=== PATIENT | female | born 1990 | race Caucasian/White ===

== ENCOUNTER 2019-10-23 07:34 | Inpatient (IN) | payer OTHER ==
[2019-10-23] MEDS ORDERED: Nalbuphine 10 MG/ML Syringe IVPUSH PRN (08:01)
[2019-10-23] MEDS ORDERED: Sodium Chloride 0.9% 10 ML Syringe FLUSH PRN (08:01)
[2019-10-23] MEDS ORDERED: Ondansetron 4 MG/2 ML SDV IVPUSH PRN (08:01)
[2019-10-23] MEDS ORDERED: Ampicillin 2 GM in Sodium Chloride 0.9% 100 ML IV ONE (08:01)
[2019-10-23] MEDS ORDERED: Oxytocin/Lactated Ringers 10 UNIT/1,000 ML BAG IV SCH ×2 (08:15→15:45)
[2019-10-23] MEDS ORDERED: diphenhydrAMINE 50 MG/ML SDV IVPUSH PRN (08:23)
[2019-10-23] MEDS ORDERED: ePHEDrine 50 MG/ML SDV IVPUSH PRN (08:23)
[2019-10-23] MEDS: Lactated Ringers 1,000 ML IV SCH ×5 (08:24→21:17)
--- NOTE | 2019-10-23 08:27 | PCM.PREANE ---
Preanesthetic Assessment - Procedure Proposed Procedure: sue - Anesthesia/Transfusion/Family Hx Anesthesia History: Prior Anesthesia Without Reaction Family History of Anesthesia Reaction: No Transfusion History: No Prior Transfusion(s) - Review of Systems General: No Symptoms Pulmonary: No Symptoms Cardiovascular: No Symptoms Gastrointestinal: No Symptoms Neurological: No Symptoms Other: Reports: None - Physical Assessment Vital Signs: Last Vital Signs Temp 99.5 F 10/23/19 07:43 Pulse 114 H 10/23/19 07:43 Resp 16 10/23/19 07:43 BP 145/82 H 10/23/19 07:43 Pulse Ox 98 10/23/19 07:43 Height: 5 ft 5 in Weight: 94.529 kg ASA Class: 2 Mental Status: Alert & Oriented x3 Airway Class: Mallampati = 1 Dentition: Reports: Normal Dentition Thyro-Mental Finger Breadths: 3 Mouth Opening Finger Breadths: 3 ROM/Head Extension: Full Lungs: Clear to Auscultation, Normal Respiratory Effort Cardiovascular: Regular Rate, Regular Rhythm, No Murmurs - Allergies Allergies/Adverse Reactions: Allergies Allergy/AdvReac Type Severity Reaction Status Date / Time No Known Allergies Allergy Verified 10/23/19 07:43 - Blood Blood Available: No - Acknowledgements Anesthesia Type Planned: Epidural Pt an Appropriate Candidate for the Planned Anesthesia: Yes Alternatives and Risks of Anesthesia Discussed w Pt/Guardian: Yes Pt/Guardian Understands and Agrees with Anesthesia Plan: Yes PreAnesthesia Questionnaire Cardiovascular History: Reports: None Respiratory History: Reports: Asthma (exercise-induced) Gastrointestinal History: Reports: None : 1 (40 weeks) Para: 0 - Past Surgical History HEENT Surgical History: Reports: Tonsillectomy GI Surgical History: Reports: Colonoscopy Female Surgical History: Reports: Breast Implant Musculoskeletal Surgical History: Reports: Shoulder Surgery - SUBSTANCE USE Smoking Status *Q: Never Smoker Tobacco Use Within Last Twelve Months: No Second Hand Smoke Exposure: No Days Per Week of Alcohol Use: 0 Recreational Drug Use History: No - HOME MEDS Home Medications: Home Meds Albuterol Sulfate [Albuterol Sulfate HFA] 8.5 gm IH Q6H PRN 10/14/13 [History] Vits #93/Iron Fum/FA [ Formula Tablet] 1 each PO 10/23/19 [ History] - CURRENT (IN HOUSE) MEDS Current Meds: Current Medications Ampicillin Sodium 2 gm/ Sodium (Chloride) 100 mls @ 200 mls/hr IV ONETIME ONE Stop: 10/23/19 08:30 Lactated Ringer's (Ringers, Lactated) 1,000 mls @ 100 mls/hr IV ASDIRECTED JOSE Ampicillin Sodium 1 gm/ Sodium (Chloride) 100 mls @ 200 mls/hr IV Q4H JOSE Oxytocin/Lactated Ringer's (Pitocin In Lr 10 Units/1,000 Ml) 10 unit in 1,000 mls @ 500 mls/hr IV .CONTINUOUS JOSE Nalbuphine HCl (Nubain) 10 mg IVPUSH Q2H PRN PRN Reason: Pain Ondansetron HCl (Zofran) 4 mg IVPUSH Q4H PRN PRN Reason: Nausea/Vomiting Sodium Chloride (Saline Flush) 10 ml FLUSH ASDIRECTED PRN PRN Reason: Keep Vein Open
[2019-10-23] MEDS: fentaNYL 100 MCG/2 ML SDV EPIDUR PRN ×3 (08:47→15:46)
[2019-10-23] MEDS: Bupivacaine/fentaNYL/NS 100 ML Bag EPIDUR PRN ×3 (08:48→20:13)
--- NOTE | 2019-10-23 11:26 | PCM.LDHP ---
L&D History of Present Illness - General Date of Service: 10/23/19 Admit Problem/Dx: Patient Status Order with Admit Dx/Problem 10/23/19 07:43 Patient Status [ADT] Routine 10/23/19 08:01 Patient Status [ADT] Routine Admission Diagnosis/Problem Admission Diagnosis/Problem Source of Information: Patient History Limitations: Reports: No Limitations - History of Present Illness Introduction:: Svetlana Craft is a 29-year-old at 40 weeks 2 days (KEZIA 10/21/2019) by LMP who presents for evaluation of possible labor. She reports that she started to have contractions that were somewhat regular about every 10 minutes apart starting around 7 PM on 10/22/2019. Throughout the evening they started to get closer and closer together until around 4 this morning when they were about 5 minutes apart. She denies any leaking of fluid or vaginal bleeding. Reports good movement. She reports that the contractions have been getting stronger and more painful throughout the evening. Timing/Duration: Reports: gradual onset, getting worse Location, : Reports: Lower back, Pelvic Quality: Reports: Pressure Severity: Severe Pain Score: 7 Improves with: Reports: None Worsens with: Reports: None Associated Symptoms: Denies: vaginal bleeding, vaginal discharge, vaginal fluid Present Illness Comments:: Svetlana Craft is a 29-year-old at 40 weeks 2 days (KEZIA 10/21/2019) who presents in active labor. She has had routine care with Dr. Mark starting at 10 weeks gestational age. She reports that the has been overall uncomplicated. She received flu vaccine on 03/28/2019 and Tdap on 2019. This is complicated by: * GBS positive on swab -patient to receive GBS prophylactic antibiotics on labor and delivery * History of exercise-induced asthma -patient reports history of exercise- induced asthma and has not needed to use her inhalers throughout the . * History of breast augmentation -we will have patient work with community health consultant as well as nursing staff to assist with breast-feeding after delivery * Obesity in labs Blood type: A+ Antibody screen: Negative First trimester hematocrit/hemoglobin: 41.9%/14.7 on 03/28/2019 Platelets: 279 on 03/28/2019 Urine culture: Negative, consistent with contamination Rubella status: Immune Hepatitis B surface antigen: Negative RPR: Negative HIV: Negative Gonorrhea: Negative Chlamydia: Negative Genetic testing: Negative genetic screening testing performed at approximately 10 weeks gestational age One hour glucose tolerance test: 114 Second trimester hemoglobin: 12.7 on 08/01/2019 Platelets: 237 on 08/01/2019 GBS status: Positive on swab done on 09/26/2019 - Related Data Allergies/Adverse Reactions: Allergies Allergy/AdvReac Type Severity Reaction Status Date / Time No Known Allergies Allergy Verified 10/23/19 07:43 Home Medications: Home Meds Albuterol Sulfate [Albuterol Sulfate HFA] 8.5 gm IH Q6H PRN 10/14/13 [History] Vits #93/Iron Fum/FA [ Formula Tablet] 1 each PO 10/23/19 [ History] Past Medical History Cardiovascular History: Reports: None Respiratory History: Reports: Asthma (exercise-induced) Gastrointestinal History: Reports: None IN[employer]CHIT[employer] History: Reports: : 1 Para: 0 - Infectious Disease History Infectious Disease History: Reports: Chicken Pox - Past Surgical History HEENT Surgical History: Reports: Tonsillectomy GI Surgical History: Reports: Colonoscopy Female Surgical History: Reports: Breast Implant Musculoskeletal Surgical History: Reports: Shoulder Surgery (x2) Social & Family History - Tobacco Use Smoking Status *Q: Never Smoker Second Hand Smoke Exposure: No - Alcohol Use Days Per Week of Alcohol Use: 0 - Recreational Drug Use Recreational Drug Use: No - Living Situation & Occupation Living situation: Reports: Single, with Significant Other, Other Occupation: Unemployed H&P Review of Systems - Review of Systems: Review Of Systems: See Below General: Denies: Fever, Chills, Malaise, Weakness, Fatigue HEENT: Denies: Headaches, Rhinitis, Post Nasal Drip, Sinus Congestion, Sore Throat, Visual Changes Pulmonary: Denies: Shortness of Breath, Wheezing, Pleuritic Chest Pain, Cough Cardiovascular: Denies: Chest Pain, Palpitations, Dyspnea on Exertion, Orthopnea Gastrointestinal: Denies: Abdominal Pain, Constipation, Diarrhea, Nausea, Vomiting Genitourinary: Denies: Dysuria, Frequency, Burning, Pain, Urgency Musculoskeletal: Reports: Back Pain (And hip pain of ) Skin: Denies: Rash, Lesions Psychiatric: Denies: Depression, Anxiety L&D Exam - Exam Exam: See Below - Vital Signs Vital Signs: Last Vital Signs Temp 37.5 C 10/23/19 07:43 Pulse 114 H 10/23/19 07:43 Resp 16 10/23/19 07:43 BP 145/82 H 10/23/19 07:43 Pulse Ox 98 10/23/19 07:43 Weight: 94.529 kg - OB Specific Contraction Duration (sec): 60-75 Contraction Frequency (min): 2-6 Contraction Intensity: Moderate to Strong Movement: Active Heart Tones: Present Heart Tones per Min: 130 (+15 x 15 accelerations, no decelerations) Heart Rate (FHR) Variability: Moderate (6-25 bmp) Presentation: Vertex Estimated Weight: 7.5-8 pounds by Gianni's - Tamez Score Tamez Score Cervix Position: Midposition Tamez Score Consistency: Soft Tamez Score Effacement: 51-70% (70%) Tamez Score Dilation: > 5 cm (5 cm) Tamez Score Infant's Station: -2 Tamez Score Total: 9 - Exam General: Alert, Oriented HEENT: Conjunctiva Clear, EOMI Neck: Supple, Trachea Midline Cardiovascular: Regular Rate, Regular Rhythm GI/Abdominal Exam: Soft, Non-Tender, No Distention, Other (Gravid). No: Guarding, Rigid, Rebound Genitourinary: Normal external exam (Per nurses exam) Extremities: Normal Inspection, Pedal Edema (Trace) Skin: Warm, Dry, Intact Psychiatric: Alert, Normal Affect, Normal Mood - Patient Data Lab Results Last 24 hrs: Laboratory Results - last 24 hr 10/23/19 Range/Units 08:15 WBC 13.52 H (3.98-10.04) K/mm3 RBC 4.11 (3.98-5.22) M/mm3 Hgb 12.1 D (11.2-15.7) gm/dl Hct 36.1 (34.1-44.9) % MCV 87.8 (79.4-94.8) fl MCH 29.4 (25.6-32.2) pg MCHC 33.5 (32.2-35.5) g/dl RDW Std Deviation 41.4 (36.4-46.3) fL Plt Count 248 (182-369) K/mm3 MPV 10.2 (9.4-12.3) fl Neut % (Auto) 75.5 H (34.0-71.1) % Lymph % (Auto) 13.8 L (19.3-51.7) % [place] % (Auto) 9.3 (4.7-12.5) % Eos % (Auto) 0.5 L (0.7-5.8) Baso % (Auto) 0.2 (0.1-1.2) % Neut # (Auto) 10.19 H (1.56-6.13) K/mm3 Lymph # (Auto) 1.87 (1.18-3.74) K/mm3 [place] # (Auto) 1.26 H (0.24-0.36) K/mm3 Eos # (Auto) 0.07 (0.04-0.36) K/mm3 Baso # (Auto) 0.03 (0.01-0.08) K/mm3 Result Diagrams: 10/23/19 08:15 - Problem List (1) 40 weeks gestation of SNOMED Code(s): 40125525 ICD Code: Z3A.40 - 40 WEEKS GESTATION OF Status: Acute Current Visit: Yes (2) GBS (group B Streptococcus carrier), +RV culture, currently SNOMED Code(s): 0000078055123, 784553063, 5151112476833 ICD Code: O99.820 - STREPTOCOCCUS B CARRIER STATE COMPLICATING Status: Acute Current Visit: Yes (3) Obesity affecting , antepartum SNOMED Code(s): 901178418569, 433694343005 ICD Code: O99.210 - OBESITY COMPLICATING , UNSPECIFIED TRIMESTER Status: Acute Current Visit: Yes (4) Asthma affecting , antepartum SNOMED Code(s): 401056678, 006313462 ICD Code: O99.519 - DISEASES OF THE RESP SYS COMP , UNSP TRIMESTER; J45.909 - UNSPECIFIED ASTHMA, UNCOMPLICATED Status: Acute Current Visit: Yes Problem List Initiated/Reviewed/Updated: Yes Orders Last 24hrs: Active Orders 24 hr Category Date Time Status Patient Status [ADT] Routine ADT 10/23/19 08:01 Active Activity as Tolerated [RC] PFP Care 10/23/19 08:01 Active Communication Order [RC] ASDIRECTED Care 10/23/19 08:01 Active Heart Tones [RC] ASDIRECTED Care 10/23/19 08:01 Active Non Stress Test [RC] PER UNIT ROUTINE Care 10/23/19 07:43 Active Insert Urinary Catheter [OM.PC] Q24H Care 10/23/19 09:30 Ordered Notify Provider [RC] ASDIRECTED Care 10/23/19 08:23 Active Notify Provider [RC] PFP Care 10/23/19 08:01 Active Notify Provider [RC] PRN Care 10/23/19 08:01 Active Peripheral IV Care [RC] . DIRECTED Care 10/23/19 08:01 Active Urinary Catheter Assessment [RC] ASDIRECTED Care 10/23/19 09:18 Active Vital Signs [RC] PER UNIT ROUTINE Care 10/23/19 07:43 Active Regular Diet [DIET] Diet 10/23/19 Breakfast Active BLOOD BANK HOLD SPECIMEN [BBK] Stat Lab 10/23/19 08:01 Ordered COMPREHENSIVE METABOLIC PN,CMP [CHEM] Routine Lab 10/23/19 11:17 Ordered PROTEIN/CREATININE RATIO,URINE [URCHEM] Routine Lab 10/23/19 11:17 Ordered RAPID PLASMA REAGIN,RPR [CHEM] Routine Lab 10/23/19 08:15 Received Ampicillin 1 gm Med 10/23/19 12:00 Active Sodium Chloride 0.9% [Normal Saline] 100 ml IV Q4H Bupivacaine/fentaNYL/NS [fentaNYL/Bupivacaine/NS 2 MCG- Med 10/23/19 08:23 Active 0.125% 100 ML] 100 ml EPIDUR ASDIRECTED PRN Lactated Ringers [Ringers, Lactated] 1,000 ml Med 10/23/19 08:15 Active IV ASDIRECTED Nalbuphine [Nubain] Med 10/23/19 08:01 Active 10 mg IVPUSH Q2H PRN Ondansetron [Zofran] Med 10/23/19 08:01 Active 4 mg IVPUSH Q4H PRN Oxytocin/Lactated Ringers [Pitocin in LR 10 Units/1,000 Med 10/23/19 08:15 Active ML] 10 unit in 1,000 ml IV .CONTINUOUS Sodium Chloride 0.9% [Saline Flush] Med 10/23/19 08:01 Active 10 ml FLUSH ASDIRECTED PRN diphenhydrAMINE [Benadryl] Med 10/23/19 08:23 Active 25 mg IVPUSH Q6H PRN ePHEDrine [ePHEDrine sulfate] Med 10/23/19 08:23 Active 5 mg IVPUSH ASDIRECTED PRN fentaNYL [Sublimaze] Med 10/23/19 08:23 Active 100 mcg EPIDUR Q3H PRN Electronic Heart Tones Ext w TOCO [WOMSER] Oth 10/23/19 08:01 Ordered Routine Electronic Heart Tones Internal [WOMSER] Per Unit Oth 10/23/19 08:01 Ordered Routine Peripheral IV Insertion Adult [OM.PC] Routine Oth 10/23/19 08:01 Ordered Resuscitation Status Routine Resus Stat 10/23/19 07:43 Ordered Medication Orders Diphenhydramine HCl (Benadryl) 25 mg IVPUSH Q6H PRN PRN Reason: pruritis Ephedrine Sulfate (Ephedrine Sulfate) 5 mg IVPUSH ASDIRECTED PRN PRN Reason: Hypotension Fentanyl (Sublimaze) 100 mcg EPIDUR Q3H PRN PRN Reason: Pain Last Admin: 10/23/19 08:47 Dose: 100 mcg Fentanyl/Bupivacaine HCl (Fentanyl/Bupivacaine/Ns 2 Mcg-0.125% 100 Ml) 100 ml EPIDUR ASDIRECTED PRN PRN Reason: Pain Last Admin: 10/23/19 08:48 Dose: 100 ml Lactated Ringer's (Ringers, Lactated) 1,000 mls @ 100 mls/hr IV ASDIRECTED JOSE Last Infusion: 10/23/19 09:31 Dose: 100 mls/hr Admin: 10/23/19 08:56 Dose: 999 mls/hr Infusion: 10/23/19 08:56 Dose: 999 mls/hr Admin: 10/23/19 08:24 Dose: 999 mls/hr Ampicillin Sodium 1 gm/ Sodium (Chloride) 100 mls @ 200 mls/hr IV Q4H JOSE Oxytocin/Lactated Ringer's (Pitocin In Lr 10 Units/1,000 Ml) 10 unit in 1,000 mls @ 500 mls/hr IV .CONTINUOUS JOSE Nalbuphine HCl (Nubain) 10 mg IVPUSH Q2H PRN PRN Reason: Pain Ondansetron HCl (Zofran) 4 mg IVPUSH Q4H PRN PRN Reason: Nausea/Vomiting Sodium Chloride (Saline Flush) 10 ml FLUSH ASDIRECTED PRN PRN Reason: Keep Vein Open Assessment/Plan Comment:: Refer to observation for spontaneous labor with cervical change Start Pitocin for augmentation of labor if patient has spacing out of her contractions more than 5 minutes apart. We will plan artificial rupture of membranes at approximately 4 hours after first dose of GBS antibiotic prophylaxis dose which will be around 12:[address] IV and have Lactated Ringer's at 125 ml/hr May have small amounts of regular diet Activity as tolerated Epidural in place and overall working well but having some sensation on her left side Plans to breast-feed after delivery. Recommend to work closely with nurses as well as community health consultant given history of breast augmentation. On ampicillin 2 g with first dose at 8:30 AM and have 1 g every 4 hours after for GBS prophylaxis Patient with multiple mild range blood pressures. We will check to see if patient has any signs of preeclampsia with checking CMP and urine protein/ creatinine ratio. Patient with normal hemoglobin and platelet count on CBC that was collected on initial labs. Anticipate vaginal delivery unless otherwise indicated Agusto Simon MD 11:34 AM 10/23/2019
[2019-10-23] MEDS: Ampicillin 1 GM in Sodium Chloride 0.9% 100 ML IV SCH ×3 (12:20→20:17)
--- NOTE | 2019-10-23 13:15 | PCM.PNLD ---
Labor Progress Note - VS & Meds Vital Signs: Last Vital Signs Temp 37.5 C 10/23/19 07:43 Pulse 114 H 10/23/19 07:43 Resp 16 10/23/19 07:43 BP 145/82 H 10/23/19 07:43 Pulse Ox 98 10/23/19 07:43 Active Medications: Current Medications Diphenhydramine HCl (Benadryl) 25 mg IVPUSH Q6H PRN PRN Reason: pruritis Ephedrine Sulfate (Ephedrine Sulfate) 5 mg IVPUSH ASDIRECTED PRN PRN Reason: Hypotension Fentanyl (Sublimaze) 100 mcg EPIDUR Q3H PRN PRN Reason: Pain Last Admin: 10/23/19 12:23 Dose: 100 mcg Fentanyl/Bupivacaine HCl (Fentanyl/Bupivacaine/Ns 2 Mcg-0.125% 100 Ml) 100 ml EPIDUR ASDIRECTED PRN PRN Reason: Pain Last Admin: 10/23/19 08:48 Dose: 100 ml Lactated Ringer's (Ringers, Lactated) 1,000 mls @ 100 mls/hr IV ASDIRECTED JOSE Last Infusion: 10/23/19 09:31 Dose: 100 mls/hr Ampicillin Sodium 1 gm/ Sodium (Chloride) 100 mls @ 200 mls/hr IV Q4H JOSE Last Admin: 10/23/19 12:20 Dose: 200 mls/hr Oxytocin/Lactated Ringer's (Pitocin In Lr 10 Units/1,000 Ml) 10 unit in 1,000 mls @ 500 mls/hr IV .CONTINUOUS JOSE Nalbuphine HCl (Nubain) 10 mg IVPUSH Q2H PRN PRN Reason: Pain Ondansetron HCl (Zofran) 4 mg IVPUSH Q4H PRN PRN Reason: Nausea/Vomiting Sodium Chloride (Saline Flush) 10 ml FLUSH ASDIRECTED PRN PRN Reason: Keep Vein Open Discontinued Medications Ampicillin Sodium 2 gm/ Sodium (Chloride) 100 mls @ 200 mls/hr IV ONETIME ONE Stop: 10/23/19 08:30 Last Admin: 10/23/19 08:24 Dose: 200 mls/hr - Uterine Contractions Uterine Monitoring Mode: External [place] Contraction Frequency (min): 2-4 Contraction Duration (sec): 45-75 Contraction Intensity: Moderate to Strong Uterine Resting Tone: Soft - Monitoring Monitor Mode: Doppler/Auscultation Heart Rate (FHR) Baseline: 140 Heart Rate (FHR) Per Doppler: 140 Heart Rate (FHR) Variability: Moderate (6-25 bmp) Accelerations: Present, 15x15 Decelerations: None Strip Review: Category I - Vaginal Exam Dilation (cm): 8 cm Effacement (Percent): 100% Station: 1 Cervical Position: Anterior Sterile Vaginal Exam Performed By: Agusto Simon Vaginal Exam Comment: Artificial rupture membranes performed with [place] with return of light meconium stained fluid. Mother and infant tolerated without difficulty. - Labor Progress (Free Text) Labor Progress: Patient continuing to make good progress at this time. Artificial rupture membranes performed with return of light meconium stained fluid. Mother and infant tolerated procedure. Patient continues to have mild range blood pressures. Labs for preeclampsia were negative. Suspect that patient has gestational hypertension. Continue close monitoring of vitals. Monitor for blood pressures greater than 160/110 which may indicate preeclampsia with severe features Continuous monitoring Epidural giving overall good pain control at this time Anticipate vaginal delivery unless otherwise indicated Agusto Simon MD 1:15 PM 10/23/2019
--- NOTE | 2019-10-23 21:58 | PCM.PNLD ---
Labor Progress Note - VS & Meds Vital Signs: Last Vital Signs Temp 37.5 C 10/23/19 07:43 Pulse 114 H 10/23/19 07:43 Resp 16 10/23/19 07:43 BP 145/82 H 10/23/19 07:43 Pulse Ox 98 10/23/19 07:43 Active Medications: Current Medications Diphenhydramine HCl (Benadryl) 25 mg IVPUSH Q6H PRN PRN Reason: pruritis Ephedrine Sulfate (Ephedrine Sulfate) 5 mg IVPUSH ASDIRECTED PRN PRN Reason: Hypotension Fentanyl (Sublimaze) 100 mcg EPIDUR Q3H PRN PRN Reason: Pain Last Admin: 10/23/19 15:46 Dose: 100 mcg Fentanyl/Bupivacaine HCl (Fentanyl/Bupivacaine/Ns 2 Mcg-0.125% 100 Ml) 100 ml EPIDUR ASDIRECTED PRN PRN Reason: Pain Last Admin: 10/23/19 20:13 Dose: 100 ml Lactated Ringer's (Ringers, Lactated) 1,000 mls @ 100 mls/hr IV ASDIRECTED JOSE Last Admin: 10/23/19 21:17 Dose: 100 mls/hr Ampicillin Sodium 1 gm/ Sodium (Chloride) 100 mls @ 200 mls/hr IV Q4H JOSE Last Admin: 10/23/19 20:17 Dose: 200 mls/hr Oxytocin/Lactated Ringer's (Pitocin In Lr 10 Units/1,000 Ml) 10 unit in 1,000 mls @ 500 mls/hr IV .CONTINUOUS JOSE Oxytocin/Lactated Ringer's (Pitocin In Lr 10 Units/1,000 Ml) 10 unit in 1,000 mls @ 12 mls/hr IV TITRATE JOSE; Protocol Last Titration: 10/23/19 17:11 Dose: 6 munits/min, 36 mls/hr Nalbuphine HCl (Nubain) 10 mg IVPUSH Q2H PRN PRN Reason: Pain Ondansetron HCl (Zofran) 4 mg IVPUSH Q4H PRN PRN Reason: Nausea/Vomiting Sodium Chloride (Saline Flush) 10 ml FLUSH ASDIRECTED PRN PRN Reason: Keep Vein Open Discontinued Medications Ampicillin Sodium 2 gm/ Sodium (Chloride) 100 mls @ 200 mls/hr IV ONETIME ONE Stop: 10/23/19 08:30 Last Admin: 10/23/19 08:24 Dose: 200 mls/hr - Uterine Contractions Uterine Monitoring Mode: External [place] Contraction Frequency (min): 2-3 Contraction Duration (sec): 60-75 Contraction Intensity: Moderate to Strong Uterine Resting Tone: Soft - Monitoring Monitor Mode: Doppler/Auscultation Heart Rate (FHR) Baseline: 140 Heart Rate (FHR) Per Doppler: 140 Heart Rate (FHR) Variability: Moderate (6-25 bmp) Accelerations: Present, 15x15 Decelerations: Late, Intermittent (<50% x 20 min) Strip Review: Category II - Vaginal Exam Dilation (cm): 8 cm Effacement (Percent): 100% Station: 1 Cervical Position: Anterior Sterile Vaginal Exam Performed By: Agusto Simon Vaginal Exam Comment: Patient had insertion of intrauterine pressure catheter to monitor her contractions more closely. Mother and tolerated without difficulty. - Labor Progress (Free Text) Labor Progress: Patient making slow progress at this time. Minimal change since artificial rupture membranes. Patient comfortable with epidural in place Patient started on Pitocin for augmentation of labor Patient with intermittent variables at approximately 19:30 not continuing since then Continue with augmentation of labor with Pitocin Anticipate vaginal delivery unless otherwise indicated Agusto Simon MD 9:57 PM 10/23/2019
[2019-10-24] MEDS ORDERED: Bupivacaine 0.25% 10 ML SDV ONE
[2019-10-24] MEDS ORDERED: Lidocaine 1.5% with EPINEPHrine 1:200,000 5 ML Amp ONE
[2019-10-24] MEDS: Ampicillin 1 GM in Sodium Chloride 0.9% 100 ML IV SCH ×2 (01:08→03:29)
[2019-10-24] MEDS: Bupivacaine/fentaNYL/NS 100 ML Bag EPIDUR PRN (03:29)
[2019-10-24] MEDS: Lactated Ringers 1,000 ML IV SCH (03:31)
--- NOTE | 2019-10-24 06:52 | PCM.DEL ---
L & D Note - General Info Date of Service: 10/24/19 Mother's Due Date: 10/21/19 - Delivery Note Labor: Augmented by ARM, Augmented by Oxytocin Delivery Outcome: Livebirth Delivery Method: Spontaneous Vaginal Delivery-Single Infant Delivery Mode: Vacuum Extraction Presentation: Right Occiput Transverse (ROT) Nuchal Cord: None Prep: Povidone-Iodine (Betadine Anesthesia Type: Epidural Amniotic Fluid Description: Meconium Stained Episiotomy Type: None Laceration: 3rd Degree (complete, repaired with 2-0 Vicryl Rapide and 3-0 Vicryl ) Suture type: Vicryl Suture size: 2-0 Placenta: Intact, Spontaneous Cord: 3 Vessels Estimated Blood Loss: 450 Resuscitation Needed: Yes : Suctioned, Bulb Syringe, Cathether, Stimulated, Warmed, [place] Used, Warmer Used Provider: Agusto Simon Score 1 min: 4 Score 5 min: 7 Score 10 min: 9 Second Stage Interventions: Reports: Pushing Effectively, Pushing, Left Side, Pushing, Squatting, Pushing, Stirrups/Leg Supports Delivery Comments (Free Text/Narrative):: Stage I: Svetlana Craft was admitted for spontaneous labor. On admission her cervix was dilated to 5 cm. She was GBS positive and was started on ampicillin for GBS prophylaxis. She received a total of 5 doses prior to delivery. She was given an epidural for anesthesia. She had artificial rupture membranes with return of light meconium stained fluid. She was making slow progress throughout the day and evening and was started on Pitocin for augmentation of labor. She had an intrauterine pressure catheter placed to monitor her contractions more closely. She progressed to complete and pushing Stage II: Patient began pushing at approximately 1 AM on 10/24/2019 and was pushing with good maternal effort for approximately 3 hours. At around 4 AM she stated that she was becoming tired and options were discussed with the patient including continued pushing, assistance with vacuum extraction delivery or section. Patient desired to proceed with vacuum extraction assisted delivery patient. Patient was counseled on the risks and benefits of a vacuum extractor delivery including shoulder dystocia, scalp laceration , cephalohematoma and sub-galeal hemorrhage as well as maternal injury. Patient gave verbal consent to proceed with vacuum extractor delivery. Patient initially had a Kiwi mushroom cup vacuum extractor placed on the skull. Infant was felt to be in right occiput transverse position. When the patient had contractions that was beginning vacuum was applied to 550 mmHg and with gentle traction the head was brought to a +4 position. During this time there were 2 pop offs with the Kiwi mushroom cup extractor. At this time is felt that the electric pump dye vacuum extractor would be more effective for delivery and this was applied to the head. With the beginning of a contraction the vacuum was applied to 600 mmHg with the electric pump vacuum and over the course of 2 contractions the head was able to be delivered. The 2 vacuum extractor's were applied to the head with vacuum for approximately 3.5 minutes total over the course of 7 contractions. There was a shoulder dystocia for approximately 30 seconds and the was able to be delivered after performing a wood screw maneuver rotating the in a counterclockwise fashion. The left shoulder was the anterior shoulder. On 10/23 she had a vacuum-assisted vaginal delivery of a live female at 05: 15. Apgars of 4, 7 & 9. Weight of 3720 g (8 lbs 3.2 oz). Length of 21.5 inches. There was no nuchal cord. was delivered in CASS position. The cord was doubly clamped and cut by myself. was taken to the warmer for resuscitation immediately after delivery. Cord blood gases collected with venous gas showing pH 7.23, PCO2 47.9, base deficit 8.2. Arterial blood gas showed pH 7.15, PCO2 60.0 and base deficit of 9.3. Stage III: She had a spontaneous delivery of an intact placenta in [place] presentation. Three vessel cord. She was given pitocin and fundal massage. She had a complete third-degree laceration with extension down to the anus without involvement of the rectal mucosa. The external anal sphincter muscle capsule was repaired with 2-0 Vicryl Rapide using interrupted [id number] sutures first in the posterior portion, then the inferior portion, then the superior portion and then finally in the anterior portion. The remainder of the repair was completed with 3-0 Vicryl. Mom and baby were stable to recovery. EBL of 450 mL. Agusto Simon MD 6:49 AM 10/24/2019 Vacuum Extractor Progress Note - Alternative Labor Strategies Considered Alternative Labor Strategies Considered:: Reports: Yes Strategies Considered:: Reports: Contraction Intensity Adequate, Position Changes Used to Facilitate Rotation & Descent, Empty Bladder, Rest Indications Considered:: Reports: Yes Indications:: Reports: Prolonged 2nd Stage, Shortening of 2nd Stage for Maternal Benefit Time Out:: Reports: Yes - Patient Prepared Patient Prepared:: Reports: Yes Informed Consent:: Reports: Verbal Risks: Reports: Yes Risks Include:: Reports: Laceration, Shoulder Dystocia, Maternal Injury, Other Anesthesia/Analgesia Adequate:: Reports: Yes - Probability of Success High Probability of Success:: Reports: Yes Weight Estimated:: Reports: AGA Patient Diabetic:: Reports: No Pelvis Adequate:: Reports: Yes Position:: ROT Asynclitic:: Reports: No Station:: +2 - Application Time Maximum Application Time & Number of Pop-Offs Predetermined:: Reports: Yes Maximum Pressure Maintained in [place] (cm Hg):: 60 Total Application Time (min): *max=20min: 4 (3.5 minutes total application) Number of Times Cup Disengaged:: 2 Type of Vacuum Used:: Reports: Cup: Dye type, Cup: Mushroom type Vacuum Extraction: Successful Comments:: Cord blood gases collected with venous gas showing pH 7.23, PCO2 47.9, base deficit 8.2. Arterial blood gas showed pH 7.15, PCO2 60.0 and base deficit of 9.3. - Exit Strategy Exit strategy available:: Reports: Yes and resuscitation teams readily available:: Reports: Yes - General Info Date of Service: 10/24/19 - Patient Data Vitals - Most Recent: Last Vital Signs Temp 37.5 C 10/23/19 07:43 Pulse 114 H 10/23/19 07:43 Resp 16 10/23/19 07:43 BP 145/82 H 10/23/19 07:43 Pulse Ox 98 10/23/19 07:43 Weight - Most Recent: 94.529 kg I&O - Last 24 Hours: Intake & Output 10/23/19 10/23/19 10/24/19 14:59 22:59 06:59 Intake Total 6200 2100 Output Total 700 Balance 6200 1400 Lab Results Last 24 Hours: Laboratory Results - last 24 hr 10/23/19 10/23/19 10/23/19 Range/Units 08:15 08:15 08:15 WBC 13.52 H (3.98-10.04) K/mm3 RBC 4.11 (3.98-5.22) M/mm3 Hgb 12.1 D (11.2-15.7) gm/dl Hct 36.1 (34.1-44.9) % MCV 87.8 (79.4-94.8) fl MCH 29.4 (25.6-32.2) pg MCHC 33.5 (32.2-35.5) g/dl RDW Std Deviation 41.4 (36.4-46.3) fL Plt Count 248 (182-369) K/mm3 MPV 10.2 (9.4-12.3) fl Neut % (Auto) 75.5 H (34.0-71.1) % Lymph % (Auto) 13.8 L (19.3-51.7) % [place] % (Auto) 9.3 (4.7-12.5) % Eos % (Auto) 0.5 L (0.7-5.8) Baso % (Auto) 0.2 (0.1-1.2) % Neut # (Auto) 10.19 H (1.56-6.13) K/mm3 Lymph # (Auto) 1.87 (1.18-3.74) K/mm3 [place] # (Auto) 1.26 H (0.24-0.36) K/mm3 Eos # (Auto) 0.07 (0.04-0.36) K/mm3 Baso # (Auto) 0.03 (0.01-0.08) K/mm3 Sodium 138 (136-145) mEq/L Potassium 3.6 (3.5-5.1) mEq/L Chloride 103 (98-107) mEq/L Carbon Dioxide 21 (21-32) mEq/L Anion Gap 17.6 H (5-15) BUN 6 L (7-18) mg/dL Creatinine 0.6 (0.55-1.02) mg/dL Est Cr Clr Drug Dosing 125.61 mL/min Estimated GFR (MDRD) > 60 (>60) mL/min BUN/Creatinine Ratio 10.0 L (14-18) Glucose 79 (74-106) mg/dL Calcium 8.9 (8.5-10.1) mg/dL Total Bilirubin 0.3 (0.2-1.0) mg/dL AST 22 (15-37) U/L ALT 14 (14-59) U/L Alkaline Phosphatase 213 H (46-116) U/L Total Protein 7.0 (6.4-8.2) g/dl Albumin 2.6 L (3.4-5.0) g/dl Globulin 4.4 gm/dL Albumin/Globulin Ratio 0.6 L (1-2) Ur Random Creatinine (30.0-125.0) mg/dL U Random Total Protein (0.0-11.8) mg/dL Protein/Creatinin Ratio (0-149) mg/g RPR Non-reactive (NONREACTIVE) 10/23/19 Range/Units 11:17 WBC (3.98-10.04) K/mm3 RBC (3.98-5.22) M/mm3 Hgb (11.2-15.7) gm/dl Hct (34.1-44.9) % MCV (79.4-94.8) fl MCH (25.6-32.2) pg MCHC (32.2-35.5) g/dl RDW Std Deviation (36.4-46.3) fL Plt Count (182-369) K/mm3 MPV (9.4-12.3) fl Neut % (Auto) (34.0-71.1) % Lymph % (Auto) (19.3-51.7) % [place] % (Auto) (4.7-12.5) % Eos % (Auto) (0.7-5.8) Baso % (Auto) (0.1-1.2) % Neut # (Auto) (1.56-6.13) K/mm3 Lymph # (Auto) (1.18-3.74) K/mm3 [place] # (Auto) (0.24-0.36) K/mm3 Eos # (Auto) (0.04-0.36) K/mm3 Baso # (Auto) (0.01-0.08) K/mm3 Sodium (136-145) mEq/L Potassium (3.5-5.1) mEq/L Chloride (98-107) mEq/L Carbon Dioxide (21-32) mEq/L Anion Gap (5-15) BUN (7-18) mg/dL Creatinine (0.55-1.02) mg/dL Est Cr Clr Drug Dosing mL/min Estimated GFR (MDRD) (>60) mL/min BUN/Creatinine Ratio (14-18) Glucose (74-106) mg/dL Calcium (8.5-10.1) mg/dL Total Bilirubin (0.2-1.0) mg/dL AST (15-37) U/L ALT (14-59) U/L Alkaline Phosphatase (46-116) U/L Total Protein (6.4-8.2) g/dl Albumin (3.4-5.0) g/dl Globulin gm/dL Albumin/Globulin Ratio (1-2) Ur Random Creatinine 93.5 (30.0-125.0) mg/dL U Random Total Protein 16.5 H (0.0-11.8) mg/dL Protein/Creatinin Ratio 176.5 H (0-149) mg/g RPR (NONREACTIVE) Med Orders - Current: Current Medications Diphenhydramine HCl (Benadryl) 25 mg IVPUSH Q6H PRN PRN Reason: pruritis Ephedrine Sulfate (Ephedrine Sulfate) 5 mg IVPUSH ASDIRECTED PRN PRN Reason: Hypotension Fentanyl (Sublimaze) 100 mcg EPIDUR Q3H PRN PRN Reason: Pain Last Admin: 10/23/19 15:46 Dose: 100 mcg Fentanyl/Bupivacaine HCl (Fentanyl/Bupivacaine/Ns 2 Mcg-0.125% 100 Ml) 100 ml EPIDUR ASDIRECTED PRN PRN Reason: Pain Last Admin: 10/24/19 03:29 Dose: 100 ml Lactated Ringer's (Ringers, Lactated) 1,000 mls @ 100 mls/hr IV ASDIRECTED JOSE Last Admin: 10/24/19 03:31 Dose: 100 mls/hr Ampicillin Sodium 1 gm/ Sodium (Chloride) 100 mls @ 200 mls/hr IV Q4H JOSE Last Admin: 10/24/19 03:29 Dose: 200 mls/hr Oxytocin/Lactated Ringer's (Pitocin In Lr 10 Units/1,000 Ml) 10 unit in 1,000 mls @ 500 mls/hr IV .CONTINUOUS JOSE Last Admin: 10/24/19 05:48 Dose: 500 mls/hr Oxytocin/Lactated Ringer's (Pitocin In Lr 10 Units/1,000 Ml) 10 unit in 1,000 mls @ 12 mls/hr IV TITRATE JOSE; Protocol Last Titration: 10/23/19 17:11 Dose: 6 munits/min, 36 mls/hr Nalbuphine HCl (Nubain) 10 mg IVPUSH Q2H PRN PRN Reason: Pain Ondansetron HCl (Zofran) 4 mg IVPUSH Q4H PRN PRN Reason: Nausea/Vomiting Sodium Chloride (Saline Flush) 10 ml FLUSH ASDIRECTED PRN PRN Reason: Keep Vein Open Discontinued Medications Ampicillin Sodium 2 gm/ Sodium (Chloride) 100 mls @ 200 mls/hr IV ONETIME ONE Stop: 10/23/19 08:30 Last Admin: 10/23/19 08:24 Dose: 200 mls/hr - Problem List & Annotations (1) 40 weeks gestation of SNOMED Code(s): 66484174 Code(s): Z3A.40 - 40 WEEKS GESTATION OF Status: Acute Current Visit: Yes (2) GBS (group B Streptococcus carrier), +RV culture, currently SNOMED Code(s): 5629734788730, 039952053, 3379661265074 Code(s): O99.820 - STREPTOCOCCUS B CARRIER STATE COMPLICATING Status: Acute Current Visit: Yes (3) Obesity affecting , antepartum SNOMED Code(s): 651735589062, 614880463519 Code(s): O99.210 - OBESITY COMPLICATING , UNSPECIFIED TRIMESTER Status: Acute Current Visit: Yes (4) Asthma affecting , antepartum SNOMED Code(s): 629079530, 336914752 Code(s): O99.519 - DISEASES OF THE RESP SYS COMP , UNSP TRIMESTER; J45.909 - UNSPECIFIED ASTHMA, UNCOMPLICATED Status: Acute Current Visit: Yes (5) Vaginal delivery SNOMED Code(s): 383100350 Code(s): O80 - ENCOUNTER FOR FULL-TERM UNCOMPLICATED DELIVERY Status: Acute Current Visit: Yes (6) Vacuum extraction, delivered, current hospitalization SNOMED Code(s): 336257032 Code(s): O66.5 - ATTEMPTED APPLICATION OF VACUUM EXTRACTOR AND FORCEPS Status: Acute Current Visit: Yes (7) Third degree perineal laceration during delivery with tear of external anal sphincter and internal anal sphincter SNOMED Code(s): 327664134, 385686698 Code(s): O70.23 - THIRD DEGREE PERINEAL LACERATION DURING DELIVERY, IIIC Status: Acute Current Visit: Yes (8) Gestational hypertension SNOMED Code(s): 957960790 Code(s): O13.9 - GESTATIONAL HTN W/O SIGNIFICANT PROTEINURIA, UNSP TRIMESTER Status: Acute Current Visit: Yes - Problem List Review Problem List Initiated/Reviewed/Updated: Yes - My Orders Last 24 Hours: My Active Orders 10/23/19 07:43 Vital Signs [RC] 21,03,09,15 Resuscitation Status Routine 10/23/19 08:01 Patient Status [ADT] Routine Activity as Tolerated [RC] PFP Communication Order [RC] ASDIRECTED Notify Provider [RC] PFP Notify Provider [RC] PRN Peripheral IV Care [RC] Q2HR BLOOD BANK HOLD SPECIMEN [BBK] Stat Nalbuphine [Nubain] 10 mg IVPUSH Q2H PRN Ondansetron [Zofran] 4 mg IVPUSH Q4H PRN Sodium Chloride 0.9% [Saline Flush] 10 ml FLUSH ASDIRECTED PRN Electronic Heart Tones Ext w TOCO [WOMSER] Routine Electronic Heart Tones Internal [WOMSER] Per Unit Routine Peripheral IV Insertion Adult [OM.PC] Routine 10/23/19 08:15 Lactated Ringers [Ringers, Lactated] 1,000 ml IV ASDIRECTED Oxytocin/Lactated Ringers [Pitocin in LR 10 Units/1,000 ML] 10 unit in 1,000 ml IV .CONTINUOUS 10/23/19 09:18 Urinary Catheter Assessment [RC] ASDIRECTED 10/23/19 09:30 Insert Urinary Catheter [OM.PC] Q24H 10/23/19 12:00 Ampicillin 1 gm Sodium Chloride 0.9% [Normal Saline] 100 ml IV Q4H 10/23/19 15:45 Oxytocin/Lactated Ringers [Pitocin in LR 10 Units/1,000 ML] 10 unit in 1,000 ml IV TITRATE 10/23/19 Breakfast Regular Diet [DIET] 10/24/19 06:42 Patient Status Manage Transfer [TRANSFER] Routine - Plan Plan:: Admit to inpatient following vacuum-assisted vaginal delivery complicated by a complete third-degree laceration Recommend for patient to begin taking Colace 100 mg twice daily and use milk of magnesia as needed in order to keep her stools a soft consistency Continue Pitocin per unit protocol following delivery of placenta and lactated Ringer's until tolerating regular diet Regular diet Vitals per unit routine Monitor closely for any signs of severe range blood pressures given gestational hypertension during labor Ibuprofen and Tylenol for pain control Assist with breast-feeding as needed Continue to monitor lochia Anticipate discharge home on day #2 Agusto Simon MD 6:49 AM 10/24/2019
[2019-10-24] MEDS ORDERED: Benzocaine/Menthol 20%-0.5% Spray 56 GM Canister TOP PRN (07:58)
[2019-10-24] MEDS ORDERED: Hydrocortisone Acetate 25 MG Supp RECTAL PRN (07:58)
[2019-10-24] MEDS ORDERED: Acetaminophen 325 MG Tab PO PRN (07:58)
[2019-10-24] MEDS ORDERED: Witch Hazel Medicated Pads 40/Jar TOP PRN (07:58)
[2019-10-24] MEDS ORDERED: Magnesium Hydroxide 400 MG/5 ML Susp 30 ML Cup PO PRN (07:58)
[2019-10-24] MEDS ORDERED: Oxytocin/Lactated Ringers 10 UNIT/1,000 ML BAG IV SCH (07:58)
[2019-10-24] MEDS: Docusate Sodium 100 MG Cap PO SCH ×2 (08:42→20:51)
[2019-10-24] MEDS: Prenatal Multivitamin with Calcium/Folic Acid/Iron Tab PO SCH (08:42)
[2019-10-24] MEDS: Ibuprofen 600 MG Tab PO PRN ×3 (08:42→20:51)
--- NOTE | 2019-10-25 07:47 | PCM48HPAN ---
Post Anesthesia Note - EVALUATION WITHIN 48HRS OF ANESTHETIC Vital Signs in Normal Range: Yes Patient Participated in Evaluation: Yes Respiratory Function Stable: Yes Airway Patent: Yes Cardiovascular Function Stable: Yes Hydration Status Stable: Yes Pain Control Satisfactory: Yes Nausea and Vomiting Control Satisfactory: Yes Mental Status Recovered: Yes Vital Signs: Last Vital Signs Temp 36.8 C 10/25/19 04:34 Pulse 99 10/25/19 04:34 Resp 15 10/25/19 04:34 BP 114/66 10/25/19 04:34 Pulse Ox 96 10/25/19 04:34 - COMMENTS/OBSERVATIONS Free Text/Narrative:: no anesthesia complications noted
[2019-10-25] MEDS: Ibuprofen 600 MG Tab PO PRN (08:44)
[2019-10-25] MEDS: Docusate Sodium 100 MG Cap PO SCH (08:44)
[2019-10-25] MEDS: Prenatal Multivitamin with Calcium/Folic Acid/Iron Tab PO SCH (08:44)
--- NOTE | 2019-10-25 10:08 | PCM.SN ---
- Free Text/Narrative Note: Post Progress Note PPD #1 Subjective: Doing well overall. Ambulating slowly without difficulty. Lochia minimal this morning and decreasing since yesterday. Voiding without difficulty. Passing flatus but has not had a bowel movement at this time. She is taking Colace at this time. Tolerating regular diet without nausea or vomiting. Pain controlled with oral medications. Breast-feeding with minimal difficulty. Objective: Vitals: Vital Signs - 24 hr 10/24/19 10/24/19 10/24/19 12:33 17:03 20:46 Temperature 36.9 C 36.4 C 36.6 C Pulse, 98 106 H 107 H Peripheral Respiratory 15 16 16 Rate Blood Pressure 119/64 128/80 118/68 O2 Sat by Pulse 95 98 97 Oximetry 10/24/19 10/25/19 10/25/19 23:52 04:34 07:47 Temperature 36.5 C 36.8 C 36.4 C Pulse, 104 H 99 95 Peripheral Respiratory 16 15 16 Rate Blood Pressure 125/71 114/66 132/62 O2 Sat by Pulse 96 96 97 Oximetry Physical Exam General: Alert and oriented, no acute distress Lungs: Clear to auscultation bilaterally Heart: Regular rate and rhythm Abdomen: Soft, minimal appropriate tenderness, non-distended, fundus midline, nontender, and at the umbilicus Pelvis: Perineal tear appears to be healing well with some swelling present. No erythema or bleeding present. Extremities: Trace edema in bilateral lower extremities to mid shins Laboratory Results - last 24 hr 10/24/19 Range/Units 14:54 WBC 25.87 H (3.98-10.04) K/mm3 RBC 3.70 L (3.98-5.22) M/mm3 Hgb 10.8 L (11.2-15.7) gm/dl Hct 32.7 L (34.1-44.9) % MCV 88.4 (79.4-94.8) fl MCH 29.2 (25.6-32.2) pg MCHC 33.0 (32.2-35.5) g/dl RDW Std Deviation 41.5 (36.4-46.3) fL Plt Count 306 (182-369) K/mm3 MPV 10.5 (9.4-12.3) fl Neut % (Auto) 78.6 H (34.0-71.1) % Lymph % (Auto) 10.6 L (19.3-51.7) % [place] % (Auto) 9.7 (4.7-12.5) % Eos % (Auto) 0 L (0.7-5.8) Baso % (Auto) 0.2 (0.1-1.2) % Neut # (Auto) 20.32 H (1.56-6.13) K/mm3 Lymph # (Auto) 2.74 (1.18-3.74) K/mm3 [place] # (Auto) 2.52 H (0.24-0.36) K/mm3 Eos # (Auto) 0.00 L (0.04-0.36) K/mm3 Baso # (Auto) 0.05 (0.01-0.08) K/mm3 Manual Slide Review Abnormal smear ASSESSMENT: 29-year-old female -0-0-1 s/p vacuum-assisted vaginal delivery PPD #1, complicated by complete third-degree laceration during delivery, GBS positive, history of exercise induced asthma and history of breast augmentation PLAN: Doing well Breast-feeding with minimal difficulty. Assist as needed Lochia minimal. Continue to monitor for appropriate lochia. Continue routine care Anticipate discharge home today Agusto Simon MD 10:07 AM 10/25/2019 TeleHealth - TeleHealth Patient Service Facility: [facility]: [facility] Informed Consent: Telemedicine Audio/Visual Informed Consent: The risks, benefits, and alternatives to the telehealth visit were explained to the patient and the patient consented to this modality of care. The telehealth visit was carried out via a secure, web-based conferencing system. This telemedicine service was a real-time, two-way interactive video and communication between the patient and the provider. All the parties involved were identified and approved by the patient prior to the visit. Any physical exam was assisted by the patient. Unless noted otherwise, the provider was located at their usual clinic location , and the patient was at their place of residence. Patient identity was confirmed by having the patient state their name and date of . All communications with the patient (verbal, audiovisual, and written) were documented in the patients medical record per documentation standards.
--- NOTE | 2019-10-25 10:12 | PCM.DCSUM1 ---
Discharge Summary - Hospital Course Free Text/Narrative:: - General Info Date of Service: 10/24/19 Mother's Due Date: 10/21/19 - Delivery Note Labor: Augmented by ARM, Augmented by Oxytocin Delivery Outcome: Livebirth Delivery Method: Spontaneous Vaginal Delivery-Single Delivery Mode: Vacuum Extraction Presentation: Right Occiput Transverse (ROT) Nuchal Cord: None Prep: Povidone-Iodine (Betadine Anesthesia Type: Epidural Amniotic Fluid Description: Meconium Stained Episiotomy Type: None Laceration: 3rd Degree (complete, repaired with 2-0 Vicryl Rapide and 3-0 Vicryl ) Suture type: Vicryl Suture size: 2-0 Placenta: Intact, Spontaneous Cord: 3 Vessels Estimated Blood Loss: 450 Resuscitation Needed: Yes [place]: Suctioned, Bulb Syringe, Cathether, Stimulated, Warmed, [place] Used, Warmer Used Provider: Agusto Simon Score 1 min: 4 Score 5 min: 7 Score 10 min: 9 Second Stage Interventions: Reports: Pushing Effectively, Pushing, Left Side, Pushing, Squatting, Pushing, Stirrups/Leg Supports Delivery Comments (Free Text/Narrative):: Stage I: Svetlana Craft was admitted for spontaneous labor. On admission her cervix was dilated to 5 cm. She was GBS positive and was started on ampicillin for GBS prophylaxis. She received a total of 5 doses prior to delivery. She was given an epidural for anesthesia. She had artificial rupture membranes with return of light meconium stained fluid. She was making slow progress throughout the day and evening and was started on Pitocin for augmentation of labor. She had an intrauterine pressure catheter placed to monitor her contractions more closely. She progressed to complete and pushing Stage II: Patient began pushing at approximately 1 AM on 10/24/2019 and was pushing with good maternal effort for approximately 3 hours. At around 4 AM she stated that she was becoming tired and options were discussed with the patient including continued pushing, assistance with vacuum extraction delivery or section. Patient desired to proceed with vacuum extraction assisted delivery patient. Patient was counseled on the risks and benefits of a vacuum extractor delivery including shoulder dystocia, scalp laceration , cephalohematoma and sub-galeal hemorrhage as well as maternal injury. Patient gave verbal consent to proceed with vacuum extractor delivery. Patient initially had a Kiwi mushroom cup vacuum extractor placed on the skull. was felt to be in right occiput transverse position. When the patient had contractions that was beginning vacuum was applied to 550 mmHg and with gentle traction the head was brought to a +4 position. During this time there were 2 pop offs with the Kiwi mushroom cup extractor. At this time is felt that the electric pump gaming vacuum extractor would be more effective for delivery and this was applied to the head. With the beginning of a contraction the vacuum was applied to 600 mmHg with the electric pump vacuum and over the course of 2 contractions the head was able to be delivered. The 2 vacuum extractor's were applied to the head with vacuum for approximately 3.5 minutes total over the course of 7 contractions. There was a shoulder dystocia for approximately 30 seconds and the infant was able to be delivered after performing a wood screw maneuver rotating the in a counterclockwise fashion. The left shoulder was the anterior shoulder. On 10/23 she had a vacuum-assisted vaginal delivery of a live female at 05: 15. Apgars of 4, 7 & 9. Weight of 3720 g (8 lbs 3.2 oz). Length of 21.5 inches. There was no nuchal cord. was delivered in CASS position. The cord was doubly clamped and cut by myself. was taken to the warmer for resuscitation immediately after delivery. Cord blood gases collected with venous gas showing pH 7.23, PCO2 47.9, base deficit 8.2. Arterial blood gas showed pH 7.15, PCO2 60.0 and base deficit of 9.3. Stage III: She had a spontaneous delivery of an intact placenta in [place] presentation. Three vessel cord. She was given pitocin and fundal massage. She had a complete third-degree laceration with extension down to the anus without involvement of the rectal mucosa. The external anal sphincter muscle capsule was repaired with 2-0 Vicryl Rapide using interrupted [id number] sutures first in the posterior portion, then the inferior portion, then the superior portion and then finally in the anterior portion. The remainder of the repair was completed with 3-0 Vicryl. Mom and baby were stable to recovery. EBL of 450 mL. HPI Initial Comments: - General Info Date of Service: 10/24/19 Mother's Due Date: 10/21/19 - Delivery Note Labor: Augmented by ARM, Augmented by Oxytocin Delivery Outcome: Livebirth Delivery Method: Spontaneous Vaginal Delivery-Single Delivery Mode: Vacuum Extraction Presentation: Right Occiput Transverse (ROT) Nuchal Cord: None Prep: Povidone-Iodine (Betadine Anesthesia Type: Epidural Amniotic Fluid Description: Meconium Stained Episiotomy Type: None Laceration: 3rd Degree (complete, repaired with 2-0 Vicryl Rapide and 3-0 Vicryl ) Suture type: Vicryl Suture size: 2-0 Placenta: Intact, Spontaneous Cord: 3 Vessels Estimated Blood Loss: 450 Resuscitation Needed: Yes [place]: Suctioned, Bulb Syringe, Cathether, Stimulated, Warmed, [place] Used, Warmer Used Provider: Agusto Simon Score 1 min: 4 Score 5 min: 7 Score 10 min: 9 Second Stage Interventions: Reports: Pushing Effectively, Pushing, Left Side, Pushing, Squatting, Pushing, Stirrups/Leg Supports Delivery Comments (Free Text/Narrative):: Stage I: Svetlana Craft was admitted for spontaneous labor. On admission her cervix was dilated to 5 cm. She was GBS positive and was started on ampicillin for GBS prophylaxis. She received a total of 5 doses prior to delivery. She was given an epidural for anesthesia. She had artificial rupture membranes with return of light meconium stained fluid. She was making slow progress throughout the day and evening and was started on Pitocin for augmentation of labor. She had an intrauterine pressure catheter placed to monitor her contractions more closely. She progressed to complete and pushing Stage II: Patient began pushing at approximately 1 AM on 10/24/2019 and was pushing with good maternal effort for approximately 3 hours. At around 4 AM she stated that she was becoming tired and options were discussed with the patient including continued pushing, assistance with vacuum extraction delivery or section. Patient desired to proceed with vacuum extraction assisted delivery patient. Patient was counseled on the risks and benefits of a vacuum extractor delivery including shoulder dystocia, scalp laceration , cephalohematoma and sub-galeal hemorrhage as well as maternal injury. Patient gave verbal consent to proceed with vacuum extractor delivery. Patient initially had a Kiwi mushroom cup vacuum extractor placed on the skull. was felt to be in right occiput transverse position. When the patient had contractions that was beginning vacuum was applied to 550 mmHg and with gentle traction the head was brought to a +4 position. During this time there were 2 pop offs with the Kiwi mushroom cup extractor. At this time is felt that the electric pump gaming vacuum extractor would be more effective for delivery and this was applied to the head. With the beginning of a contraction the vacuum was applied to 600 mmHg with the electric pump vacuum and over the course of 2 contractions the head was able to be delivered. The 2 vacuum extractor's were applied to the head with vacuum for approximately 3.5 minutes total over the course of 7 contractions. There was a shoulder dystocia for approximately 30 seconds and the infant was able to be delivered after performing a wood screw maneuver rotating the infant in a counterclockwise fashion. The left shoulder was the anterior shoulder. On 10/23 she had a vacuum-assisted vaginal delivery of a live female at 05: 15. Apgars of 4, 7 & 9. Weight of 3720 g (8 lbs 3.2 oz). Length of 21.5 inches. There was no nuchal cord. was delivered in CASS position. The cord was doubly clamped and cut by myself. Infant was taken to the warmer for resuscitation immediately after delivery. Cord blood gases collected with venous gas showing pH 7.23, PCO2 47.9, base deficit 8.2. Arterial blood gas showed pH 7.15, PCO2 60.0 and base deficit of 9.3. Stage III: She had a spontaneous delivery of an intact placenta in [place] presentation. Three vessel cord. She was given pitocin and fundal massage. She had a complete third-degree laceration with extension down to the anus without involvement of the rectal mucosa. The external anal sphincter muscle capsule was repaired with 2-0 Vicryl Rapide using interrupted [id number] sutures first in the posterior portion, then the inferior portion, then the superior portion and then finally in the anterior portion. The remainder of the repair was completed with 3-0 Vicryl. Mom and baby were stable to recovery. EBL of 450 mL. Brief History: - General Info. Date of Service: 10/24/19. Mother's Due Date: 10/21/19. - Delivery Note. Labor: Augmented by ARM, Augmented by Oxytocin. Delivery Outcome: Livebirth. Delivery Method: Spontaneous Vaginal Delivery-Single. Delivery Mode: Vacuum Extraction. Presentation: Right Occiput Transverse (ROT). Nuchal Cord: None. Prep: Povidone-Iodine ( Betadine. Anesthesia Type: Epidural. Amniotic Fluid Description: Meconium Stained. Episiotomy Type: None. Laceration: 3rd Degree (complete, repaired with 2-0 Vicryl Rapide and 3-0 Vicryl). Suture type: Vicryl. Suture size: 2- 0. Placenta: Intact, Spontaneous. Cord: 3 Vessels. Estimated Blood Loss: 450. Resuscitation Needed: Yes. [place]: Suctioned, Bulb Syringe, Cathether, Stimulated, Warmed, [place] Used, Warmer Used. Provider: Agusto Simon. Score 1 min: 4. Score 5 min: 7. Score 10 min: 9. Second Stage Interventions: Reports: Pushing Effectively, Pushing, Left Side, Pushing, Squatting, Pushing, Stirrups/Leg Supports. Delivery Comments (Free Text/Narrative):: Stage I: Svetlana Craft was admitted for spontaneous labor. On admission her cervix was dilated to 5 cm. She was GBS positive and was started on ampicillin for GBS prophylaxis. She received a total of 5 doses prior to delivery. She was given an epidural for anesthesia. She had artificial rupture membranes with return of light meconium stained fluid. She was making slow progress throughout the day and evening and was started on Pitocin for augmentation of labor. She had an intrauterine pressure catheter placed to monitor her contractions more closely. She progressed to complete and pushing. Stage II: Patient began pushing at approximately 1 AM on 10/24/2019 and was pushing with good maternal effort for approximately 3 hours. At around 4 AM she stated that she was becoming tired and options were discussed with the patient including continued pushing, assistance with vacuum extraction delivery or section. Patient desired to proceed with vacuum extraction assisted delivery patient. Patient was counseled on the risks and benefits of a vacuum extractor delivery including shoulder dystocia, scalp laceration , cephalohematoma and sub-galeal hemorrhage as well as maternal injury. Patient gave verbal consent to proceed with vacuum extractor delivery. Patient initially had a Kiwi mushroom cup vacuum extractor placed on the skull. was felt to be in right occiput transverse position. When the patient had contractions that was beginning vacuum was applied to 550 mmHg and with gentle traction the head was brought to a +4 position. During this time there were 2 pop offs with the Kiwi mushroom cup extractor. At this time is felt that the electric pump gaming vacuum extractor would be more effective for delivery and this was applied to the head. With the beginning of a contraction the vacuum was applied to 600 mmHg with the electric pump vacuum and over the course of 2 contractions the head was able to be delivered. The 2 vacuum extractor's were applied to the head with vacuum for approximately 3.5 minutes total over the course of 7 contractions. There was a shoulder dystocia for approximately 30 seconds and the was able to be delivered after performing a wood screw maneuver rotating the infant in a counterclockwise fashion. The left shoulder was the anterior shoulder. On 10/23 she had a vacuum-assisted vaginal delivery of a live female at 05: 15. Apgars of 4, 7 & 9. Weight of 3720 g (8 lbs 3.2 oz). Length of 21.5 inches. There was no nuchal cord. was delivered in CASS position. The cord was doubly clamped and cut by myself. Infant was taken to the warmer for resuscitation immediately after delivery. Cord blood gases collected with venous gas showing pH 7.23, PCO2 47.9, base deficit 8.2. Arterial blood gas showed pH 7.15, PCO2 60.0 and base deficit of 9.3. Stage III: She had a spontaneous delivery of an intact placenta in [place] presentation. Three vessel cord. She was given pitocin and fundal massage. She had a complete third- degree laceration with extension down to the anus without involvement of the rectal mucosa. The external anal sphincter muscle capsule was repaired with 2- 0 Vicryl Rapide using interrupted [id number]-[id number] sutures first in the posterior portion, then the inferior portion, then the superior portion and then finally in the anterior portion. The remainder of the repair was completed with 3-0 Vicryl. Mom and baby were stable to recovery. EBL of 450 mL. Diagnosis: Stroke: No - Discharge Data Discharge Date: 10/25/19 Discharge Disposition: Home, Self-Care 01 Condition: Good - Referral to Home Health Primary Care Physician: Eva Mark MD - Discharge Diagnosis/Problem(s) (1) 40 weeks gestation of SNOMED Code(s): 17256834 ICD Code: Z3A.40 - 40 WEEKS GESTATION OF Status: Acute Current Visit: Yes (2) GBS (group B Streptococcus carrier), +RV culture, currently SNOMED Code(s): 6542741569401, 801855692, 1164373185761 ICD Code: O99.820 - STREPTOCOCCUS B CARRIER STATE COMPLICATING Status: Acute Current Visit: Yes (3) Obesity affecting , antepartum SNOMED Code(s): 331304295419, 741784710800 ICD Code: O99.210 - OBESITY COMPLICATING , UNSPECIFIED TRIMESTER Status: Acute Current Visit: Yes (4) Asthma affecting , antepartum SNOMED Code(s): 668844662, 506477923 ICD Code: O99.519 - DISEASES OF THE RESP SYS COMP , UNSP TRIMESTER; J45.909 - UNSPECIFIED ASTHMA, UNCOMPLICATED Status: Acute Current Visit: Yes (5) Vaginal delivery SNOMED Code(s): 594813073 ICD Code: O80 - ENCOUNTER FOR FULL-TERM UNCOMPLICATED DELIVERY Status: Acute Current Visit: Yes (6) Vacuum extraction, delivered, current hospitalization SNOMED Code(s): 548150907 ICD Code: O66.5 - ATTEMPTED APPLICATION OF VACUUM EXTRACTOR AND FORCEPS Status: Acute Current Visit: Yes (7) Third degree perineal laceration during delivery with tear of external anal sphincter and internal anal sphincter SNOMED Code(s): 923168502, 328146976 ICD Code: O70.23 - THIRD DEGREE PERINEAL LACERATION DURING DELIVERY, IIIC Status: Acute Current Visit: Yes (8) Gestational hypertension SNOMED Code(s): 271934585 ICD Code: O13.9 - GESTATIONAL HTN W/O SIGNIFICANT PROTEINURIA, UNSP TRIMESTER Status: Acute Current Visit: Yes - Patient Summary/Data Operative Procedure(s) Performed: Vacuum assisted vaginal delivery Complications: Complete third-degree laceration during delivery. Consults: None Hospital Course: Svetlana Craft was admitted for spontaneous labor. On admission her cervix was dilated to 5 cm. She was GBS positive and was started on ampicillin for GBS prophylaxis. She received a total of 5 doses prior to delivery. She was given an epidural for anesthesia. She had artificial rupture membranes with return of light meconium stained fluid. She was making slow progress throughout the day and evening and was started on Pitocin for augmentation of labor. She had an intrauterine pressure catheter placed to monitor her contractions more closely. She progressed to complete and pushing. On 10/24/2019 she had a vacuum-assisted vaginal delivery of a live female at 05:15. Apgars of 4, 7 & 9. Weight of 3720 g (8 lbs 3.2 oz). Length of 21.5 inches. There was no nuchal cord. was delivered in CASS position. The cord was doubly clamped and cut by myself. was taken to the warmer for resuscitation immediately after delivery. Cord blood gases collected with venous gas showing pH 7.23, PCO2 47.9, base deficit 8.2. Arterial blood gas showed pH 7.15, PCO2 60.0 and base deficit of 9.3. Please see delivery note for additional details. Her course was uneventful. Her pain was well controlled and she had minimal lochia. She was ambulating, tolerating a regular diet and voiding normally. She was breast-feeding with minimal difficulty. She was afebrile and her hematocrit was 32.7 in the afternoon of day #0 approximately 8 hours after delivery. She desired to be discharged home in the afternoon of PPD #1. Her blood type is A+. - Patient Instructions Diet: Regular Diet as Tolerated Activity: Apply Ice, As Tolerated Activity, Other: Nothing in the vagina for 6 weeks Driving: May Drive Today Showering/Bathing: May Shower Notify Provider of: Fever, Increased Pain, Swelling and Redness, Drainage, Nausea and/or Vomiting Other/Special Instructions: Please contact your physician's office if you have heavy vaginal bleeding enough to soak a pad in less than an hour for several hours. Monitor for any signs of an infection in the breasts with severe pain or redness of the breast. Ensure that you have soft bowel movements for 6 weeks after delivery. Please use Colace 100 mg twice daily to keep your stools soft. You may use milk of magnesia or MiraLAX if needed if you have increased amounts of constipation. You may also add senna to your bowel regimen to keep the stools soft. - Discharge Plan *PRESCRIPTION DRUG MONITORING PROGRAM REVIEWED*: Not Applicable *COPY OF PRESCRIPTION DRUG MONITORING REPORT IN PATIENT NAOMI: Not Applicable Home Medications: Home Meds Albuterol Sulfate [Albuterol Sulfate HFA] 8.5 gm IH Q6H PRN 10/14/13 [History] Vits #93/Iron Fum/FA [ Formula Tablet] 1 each PO 10/23/19 [ History] Acetaminophen [Tylenol] 650 mg PO Q6H PRN tablet 10/25/19 [Rx] Benzocaine/Menthol [Dermoplast Pain Relief [place]] 1 spray TOP ASDIRECTED PRN canister 10/25/19 [Rx] Docusate Sodium [Colace] 100 mg PO BID cap 10/25/19 [Rx] Hydrocortisone Acetate [Anucort-HC] 25 mg RECTAL BID PRN supp 10/25/19 [Rx] Ibuprofen [Motrin] 600 mg PO Q6H PRN tablet 10/25/19 [Rx] Magnesium Hydroxide [Milk of Magnesia] 30 ml PO BEDTIME PRN cup 10/25/19 [Rx] witch Marii [Tucks] 1 pad TOP ASDIRECTED PRN pad 10/25/19 [Rx] Patient Handouts: Vacuum-Assisted Vaginal Delivery, Care of a Perineal Tear, Care After Vaginal Delivery Referrals: Eva Mark MD [Primary Care Provider] - (Follow-up in 3 weeks for scheduled visit with Dr. Mark on 11/15/2019 or earlier as needed.) - Discharge Summary/Plan Comment DC Time >30 min.: No - Patient Data Vitals - Most Recent: Last Vital Signs Temp 36.4 C 10/25/19 07:47 Pulse 95 10/25/19 07:47 Resp 16 10/25/19 07:47 BP 132/62 10/25/19 07:47 Pulse Ox 97 10/25/19 07:47 Weight - Most Recent: 94.529 kg I&O - Last 24 hours: Intake & Output 10/24/19 10/25/19 10/25/19 22:59 06:59 14:59 Intake Total 260 Balance 260 Lab Results - Last 24 hrs: Laboratory Results - last 24 hr 10/24/19 Range/Units 14:54 WBC 25.87 H (3.98-10.04) K/mm3 RBC 3.70 L (3.98-5.22) M/mm3 Hgb 10.8 L (11.2-15.7) gm/dl Hct 32.7 L (34.1-44.9) % MCV 88.4 (79.4-94.8) fl MCH 29.2 (25.6-32.2) pg MCHC 33.0 (32.2-35.5) g/dl RDW Std Deviation 41.5 (36.4-46.3) fL Plt Count 306 (182-369) K/mm3 MPV 10.5 (9.4-12.3) fl Neut % (Auto) 78.6 H (34.0-71.1) % Lymph % (Auto) 10.6 L (19.3-51.7) % [place] % (Auto) 9.7 (4.7-12.5) % Eos % (Auto) 0 L (0.7-5.8) Baso % (Auto) 0.2 (0.1-1.2) % Neut # (Auto) 20.32 H (1.56-6.13) K/mm3 Lymph # (Auto) 2.74 (1.18-3.74) K/mm3 [place] # (Auto) 2.52 H (0.24-0.36) K/mm3 Eos # (Auto) 0.00 L (0.04-0.36) K/mm3 Baso # (Auto) 0.05 (0.01-0.08) K/mm3 Manual Slide Review Abnormal smear Med Orders - Current: Current Medications Acetaminophen (Tylenol) 650 mg PO Q6H PRN PRN Reason: mild pain or fever Benzocaine/Menthol (Dermoplast Pain Relief [place]) 0 gm TOP ASDIRECTED PRN PRN Reason: Perineal Comfort Measure Last Admin: 10/24/19 08:43 Dose: 1 spray Docusate Sodium (Colace) 100 mg PO BID JOSE Last Admin: 10/25/19 08:44 Dose: 100 mg Hydrocortisone Acetate (Anucort-Hc) 25 mg RECTAL BID PRN PRN Reason: Hemorrhoid pain Oxytocin/Lactated Ringer's (Pitocin In Lr 10 Units/1,000 Ml) 10 unit in 1,000 mls @ 100 mls/hr IV TITRATE JOSE; Protocol Ibuprofen (Motrin) 600 mg PO Q6H PRN PRN Reason: Mild pain or fever Last Admin: 10/25/19 08:44 Dose: 600 mg Magnesium Hydroxide (Milk Of Magnesia) 30 ml PO BEDTIME PRN PRN Reason: Constipation Prenat Multivit/Bosque/Iron/Folic Ac ( Plus Iron) 1 each PO DAILY JOSE Last Admin: 10/25/19 08:44 Dose: 1 each Witch Marii (Tucks) 1 pad TOP ASDIRECTED PRN PRN Reason: Perineal Comfort Measure Last Admin: 10/24/19 08:43 Dose: 1 pad Discontinued Medications Bupivacaine HCl (Sensorcaine-Mpf 0.25%) 50 ml .ROUTE .STK-MED ONE Stop: 10/24/19 00:01 Diphenhydramine HCl (Benadryl) 25 mg IVPUSH Q6H PRN PRN Reason: pruritis Ephedrine Sulfate (Ephedrine Sulfate) 5 mg IVPUSH ASDIRECTED PRN PRN Reason: Hypotension Fentanyl (Sublimaze) 100 mcg EPIDUR Q3H PRN PRN Reason: Pain Last Admin: 10/23/19 15:46 Dose: 100 mcg Fentanyl/Bupivacaine HCl (Fentanyl/Bupivacaine/Ns 2 Mcg-0.125% 100 Ml) 100 ml EPIDUR ASDIRECTED PRN PRN Reason: Pain Last Admin: 10/24/19 03:29 Dose: 100 ml Ampicillin Sodium 2 gm/ Sodium (Chloride) 100 mls @ 200 mls/hr IV ONETIME ONE Stop: 10/23/19 08:30 Last Admin: 10/23/19 08:24 Dose: 200 mls/hr Lactated Ringer's (Ringers, Lactated) 1,000 mls @ 100 mls/hr IV ASDIRECTED JOSE Last Admin: 10/24/19 03:31 Dose: 100 mls/hr Ampicillin Sodium 1 gm/ Sodium (Chloride) 100 mls @ 200 mls/hr IV Q4H JOSE Last Admin: 10/24/19 03:29 Dose: 200 mls/hr Oxytocin/Lactated Ringer's (Pitocin In Lr 10 Units/1,000 Ml) 10 unit in 1,000 mls @ 500 mls/hr IV .CONTINUOUS JOSE Last Admin: 10/24/19 05:48 Dose: 500 mls/hr Oxytocin/Lactated Ringer's (Pitocin In Lr 10 Units/1,000 Ml) 10 unit in 1,000 mls @ 12 mls/hr IV TITRATE JOSE; Protocol Last Titration: 10/23/19 17:11 Dose: 6 munits/min, 36 mls/hr Lidocaine/Epinephrine (Xylocaine-Mpf 1.5% W/Epinephrine 1:200,000) 15 ml .ROUTE .[facility] ONE Stop: 10/24/19 00:01 Nalbuphine HCl (Nubain) 10 mg IVPUSH Q2H PRN PRN Reason: Pain Ondansetron HCl (Zofran) 4 mg IVPUSH Q4H PRN PRN Reason: Nausea/Vomiting Sodium Chloride (Saline Flush) 10 ml FLUSH ASDIRECTED PRN PRN Reason: Keep Vein Open
[2019-10-25 14:49] VITALS: BP 125/62; PULSE 103
== END 2019-10-25 18:05 | disposition home or self-care (01) | DRG 768 ==
LOC: JD.OBCHECK 07:34 → JD.OB 07:34 → JD.OBCHECK 08:01 → OBSVTOIN 10-24 05:15 → JD.OB 10-24 05:16
PROVIDERS: ADMIT Obstetrics & Gynecology; ATTEND Obstetrics & Gynecology
PROC: 10D07Z6 Extraction of Products of Conception, Vacuum, Via Natural or Artificial Opening (ICD-10-PCS; principal; 2019-10-24)
PROC: 0DQR0ZZ Repair Anal Sphincter, Open Approach (ICD-10-PCS; 2019-10-24)
PROC: 10907ZC Drainage of Amniotic Fluid, Therapeutic from Products of Conception, Via Natural or Artificial Opening (ICD-10-PCS; 2019-10-24)
PROC: 10H07YZ Insertion of Other Device into Products of Conception, Via Natural or Artificial Opening (ICD-10-PCS; 2019-10-24)
PROC: 3E0R3BZ Introduction of Anesthetic Agent into Spinal Canal, Percutaneous Approach (ICD-10-PCS; 2019-10-24)
PROC: 00HU33Z Insertion of Infusion Device into Spinal Canal, Percutaneous Approach (ICD-10-PCS; 2019-10-24)
DX: O99.824 Streptococcus B carrier state complicating childbirth (principal); Z37.0 Single live birth; O70.23 Third degree perineal laceration during delivery, IIIc; O66.9 Obstructed labor, unspecified; O77.0 Labor and delivery complicated by meconium in amniotic fluid; O99.52 Diseases of the respiratory system complicating childbirth; J45.909 Unspecified asthma, uncomplicated; O99.214 Obesity complicating childbirth; E66.9 Obesity, unspecified; O13.4 Gestational [pregnancy-induced] hypertension without significant proteinuria, complicating childbirth; Z3A.40 40 weeks gestation of pregnancy
CPT/HCPCS: 36415; 51701; 51702; 59025; 59409; 80053; 82570; 84156; 85025; 86592; A9270-GY; J0290; J2590; J3010; J3490; J7050; J7120

== ENCOUNTER 2021-02-15 19:16 | Emergency (ER) | payer OTHER ==
[2021-02-15 19:24] VITALS: BP 132/93; PULSE 100
[2021-02-15] MEDS ORDERED: Acetaminophen/HYDROcodone 325-5 MG Tab PO ONE (19:33)
--- NOTE | 2021-02-15 19:38 | EDM.PDOC ---
ED HPI GENERAL MEDICAL PROBLEM - General Chief Complaint: Lower Extremity Injury/Pain Stated Complaint: LT KNEE INJURY Time Seen by Provider: 02/15/21 19:25 Source of Information: Reports: Patient, Family (Mother) History Limitations: Reports: No Limitations - History of Present Illness INITIAL COMMENTS - FREE TEXT/NARRATIVE: Mrs. Craft is a very pleasant 30-year-old woman who now presents the ED, along with her mother, after injuring her left knee while playing volleyball around 17:15 this evening. She states that she jumped up, and came down on her left knee. She states that she felt a pop and had pain in her knee. She indicates that most of her pain is on the lateral aspect, although there is pain to the medial, as well. No tenderness to the anterior or posterior left knee. No prior left knee injury. The patient states that she took some Aleve around 17:30. She brought her own crutches with her to the ED. Here in the ED, the patient is found to be hemodynamically stable, afebrile, saturating 99% on room air. She appears to be comfortable, in no acute distress. The patient states that she had a cough that began around 10 days ago, and resolved around 7 days ago. Otherwise, the patient denies having a recent fever, chills, sore throat, ear pain, nasal or sinus congestion, dyspnea, chest pain, palpitations, nausea, vomiting, constipation, diarrhea, abdominal pain, urinary symptoms, recent weight gain or weight loss, recent bloody bowel movements or black bowel movements, recent joint aches, headaches, or rashes. The patient's PCP is GERMÁN Taveras. Her Printer Apprentice is Dr. Eva Mark. She has received 2 COVID vaccinations. 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 - Related Data Allergies Allergy/AdvReac Type Severity Reaction Status Date / Time No Known Allergies Allergy Verified 02/15/21 19:26 Home Meds: Home Meds Albuterol Sulfate [Albuterol Sulfate HFA] 8.5 gm IH Q6H PRN 10/14/13 [History] Acetaminophen [Tylenol] 650 mg PO Q6H PRN tablet 10/25/19 [Rx] Ibuprofen [Motrin] 600 mg PO Q6H PRN tablet 10/25/19 [Rx] Past Medical History Respiratory History: Reports: Asthma (exercise-induced) - Infectious Disease History Infectious Disease History: Reports: Chicken Pox - Past Surgical History HEENT Surgical History: Reports: Tonsillectomy GI Surgical History: Reports: Colonoscopy Female Surgical History: Reports: Breast Implant Musculoskeletal Surgical History: Reports: Shoulder Surgery (left, arthroscopic, x 2) Social & Family History - Tobacco Use Tobacco Use Status *Q: Never Tobacco User Second Hand Smoke Exposure: No - Caffeine Use Caffeine Use: Reports: Coffee - Alcohol Use Alcohol Use History: Yes Alcohol Use Frequency: Socially - Recreational Drug Use Recreational Drug Use: No - Living Situation & Occupation Living situation: Reports: , with Spouse, with Family (1 daughter), Other Occupation: Employed ([employer]) Review of Systems - Review of Systems Review Of Systems: Comprehensive ROS is negative, except as noted in HPI. ED EXAM, GENERAL - Physical Exam Exam: See Below Exam Limited By: No Limitations General Appearance: Alert, WD/WN, No Apparent Distress Extremities: Other (No visible abnormality to the left knee, when compared to the right. There is tenderness to both the lateral and medial knee, lateral > medial. THERE IS LAXITY to stressing of the lateral collateral ligament, and pain is induced to the lateral knee. Neurovascular status of the left lower extremity) Course - Vital Signs Last Recorded V/S: Last Vital Signs Temp 36.9 C 02/15/21 19:21 Pulse 100 02/15/21 19:21 Resp 18 02/15/21 19:21 BP 132/93 H 02/15/21 19:21 Pulse Ox 99 02/15/21 19:21 - Orders/Labs/Meds Orders: Active Orders 24 hr Category Date Time Status Knee 3V Lt [CR] Stat Exams 02/15/21 19:32 Taken DME for Discharge [COMM] Stat Oth 02/15/21 19:33 Ordered DME for Discharge [COMM] Stat Oth 02/15/21 19:41 Ordered Meds: Medications Discontinued Medications Generic Name Dose Route Start Last Admin Trade Name Freq PRN Reason Stop Dose Admin Hydrocodone Bitart/Acetaminophen 2 tab 02/15/21 19:33 02/15/21 19:39 Acetaminophen/Hydrocodone 325-5 Mg Tab PO 02/15/21 19:34 2 tab ONETIME ONE Administration - Re-Assessments/Exams Free Text/Narrative Re-Assessment/Exam: 02/15/21 19:34 As above, the patient came down on her left knee while playing volleyball around 17:15 this evening, feeling a pop and experiencing pain, primarily to the lateral left knee. On examination, she has both laxity and pain induced with stressing of her lateral collateral ligament, indicating a lateral collateral ligament injury. I have ordered x-rays of the knee to rule out a bony injury, although my suspicion for such is low. I have also ordered a left knee immobilizer. The patient already has her own crutches, although I will have Anais RN ensure that she is using them properly. In the meantime, the patient will be given some [place]. 02/15/21 19:42 Notified that the crutches that the patient is using are too small for her, so I have ordered a set of those, as well. 02/15/21 20:55 3-view radiographs of the left knee appear to be grossly normal, with no fractures or dislocations identified. Formal read per the Radiologist pending. 02/15/21 21:04 X-ray results discussed with the patient and her mother. A new mobilizer has been applied. She has been given a new set of crutches with instructions on how to use them. I will recommend she take [id number] ibuprofen around the clock as needed for discomfort, and I will submit an [facility] prescription for [place] for breakthrough pain. She is to contact Dr. Robledo's office on Thursday. Departure - Departure Time of Disposition: 21:05 Disposition: Home, Self-Care 01 Condition: Good Clinical Impression: Tear of lateral collateral ligament of left knee - Discharge Information *PRESCRIPTION DRUG MONITORING PROGRAM REVIEWED*: Not Applicable *COPY OF PRESCRIPTION DRUG MONITORING REPORT IN PATIENT NAOMI: Not Applicable Referrals: Ruth Cedeno PA-C [Primary Care Provider] - Eva Mark MD [Physician] - Mateus Robledo MD [Physician] - Forms: ED Department Discharge Additional Instructions: You were seen in the emergency room after injuring your left knee while playing volleyball tonight. Work-up in the ER included x-rays of your left knee, which were normal, with no broken bones or dislocations seen. Based on your history, physical exam, and ER x-rays, you have either torn or partially torn your left lateral collateral ligament. Your left lower extremity has been placed into a knee immobilizer. Apply this each morning (over your clothes), and remove it at bedtime. We recommend that you take [id number] ibuprofen, 3 tablets every 8 hours, with food, OR [id number] naproxen, 1 tablet every 12 hours, as needed for discomfort. An [facility] prescription for [place] has been provided to you. You may take 1 to 2 tablets of [place] up to every 6 hours, as needed for pain not relieved by ibuprofen or naproxen. Do not drive for 12 hours after taking [place]. [place] may cause constipation, so consider taking a stool softener. Please contact the office of the orthopedic surgeon Dr. Mateus Robledo this coming 02/18/2021, to arrange to be seen this coming week. If any other problems, please do not hesitate to return to the ER. Sepsis Event Note (ED) - Evaluation Sepsis Screening Result: No Definite Risk - Focused Exam Vital Signs: Vital Signs Temp Pulse Resp BP Pulse Ox 02/15/21 19:21 36.9 C 100 18 132/93 H 99 - My Orders Last 24 Hours: My Active Orders 02/15/21 19:32 Knee 3V Lt [CR] Stat 02/15/21 19:33 DME for Discharge [COMM] Stat 02/15/21 19:41 DME for Discharge [COMM] Stat - Assessment/Plan Last 24 Hours: My Active Orders 02/15/21 19:32 Knee 3V Lt [CR] Stat 02/15/21 19:33 DME for Discharge [COMM] Stat 02/15/21 19:41 DME for Discharge [COMM] Stat
--- NOTE | 2021-02-16 09:35 | CR ---
Left knee: 3 views of the left knee were obtained. Comparison: No prior knee studies available. Medial and lateral joint compartments are maintained in height. No joint effusion is definitely appreciated. No acute fracture, dislocation or other bony abnormality is appreciated. Impression: 1. Nothing acute is seen on 3 view left knee exam. Diagnostic code #1
== END 2021-02-15 21:15 | disposition home or self-care (01) ==
LOC: JD.ED 19:16
DX: S83.422A Sprain of lateral collateral ligament of left knee, initial encounter (principal); X50.0XXA Overexertion from strenuous movement or load, initial encounter; Y93.68 Activity, volleyball (beach) (court)
CPT/HCPCS: 73562; 99283; A9270

== ENCOUNTER 2021-04-17 10:45 | Day surgery (SDC) | payer OTHER ==
[~2021-04-17 10:45] MED LIST: Dexamethasone 4 MG/ML 5 ML MDV ONE; Lactated Ringers 1,000 ML IV SCH; Lidocaine 1% 4 ML ONE; Lidocaine 1%/Sod Bicarbonate in NS 8.4% 1 ML Syringe IDERM PRN; Midazolam 1 MG/ML 2 ML SDV ONE; Ondansetron 4 MG/2 ML SDV ONE; Propofol 200 MG/20 ML SDV ONE; Sodium Chloride 0.9% 10 ML Syringe FLUSH PRN; fentaNYL 250 MCG/5 ML SDV ONE
[2021-04-17] MEDS ORDERED: EPINEPHrine 1 MG/ML 30 ML MDV IRR SCH (11:00)
--- NOTE | 2021-04-17 11:39 | PCM.PREANE ---
Preanesthetic Assessment - Procedure Proposed Procedure: Left acl reconstruction - Anesthesia/Transfusion/Family Hx Anesthesia History: Prior Anesthesia Without Reaction Type of Anesthesia Reaction: Excessive Nausea/Vomiting (after her colonoscopy) Family History of Anesthesia Reaction: No Transfusion History: No Prior Transfusion(s) - Review of Systems General: No Symptoms Pulmonary: No Symptoms Cardiovascular: No Symptoms Gastrointestinal: No Symptoms Neurological: No Symptoms Other: Reports: None - Physical Assessment NPO Status Date: 04/16/21 NPO Status Time: 19:30 Height: 1.65 m Weight: 72 kg ASA Class: 2 Mental Status: Alert & Oriented x3 Airway Class: Mallampati = 2 Dentition: Reports: Normal Dentition Thyro-Mental Finger Breadths: 3 Mouth Opening Finger Breadths: 3 ROM/Head Extension: Full Lungs: Clear to Auscultation, Normal Respiratory Effort Cardiovascular: Regular Rate, Regular Rhythm - Lab Values: Laboratory Last Values Urine HCG, Qual Negative (NEGATIVE) 04/17/21 11:00 - Allergies Allergies/Adverse Reactions: Allergies Allergy/AdvReac Type Severity Reaction Status Date / Time No Known Allergies Allergy Verified 04/16/21 14:26 - Blood Blood Available: No Product(s) Available: None - Anesthesia Plan Pre-Op Medication Ordered: None - Acknowledgements Anesthesia Type Planned: General Anesthesia, Regional Block (Adductor canal in recovery ) Pt an Appropriate Candidate for the Planned Anesthesia: Yes Alternatives and Risks of Anesthesia Discussed w Pt/Guardian: Yes Pt/Guardian Understands and Agrees with Anesthesia Plan: Yes PreAnesthesia Questionnaire Cardiovascular History: Reports: None Respiratory History: Reports: Asthma Gastrointestinal History: Reports: None 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: Musculoskeletal History: Reports: Other (See Below) Other Musculoskeletal History: left labral repair x 2 Neurological History: Reports: None Psychiatric History: Reports: None Endocrine/Metabolic History: Reports: None Hematologic History: Reports: None Immunologic History: Reports: None Oncologic (Cancer) History: Reports: None Dermatologic History: Reports: None - Infectious Disease History Infectious Disease History: Reports: Chicken Pox - Past Surgical History Head Surgeries/Procedures: Reports: None HEENT Surgical History: Reports: Adenoidectomy, Myringotomy w Tube(s), Tonsillectomy Respiratory Surgical History: Reports: None GI Surgical History: Reports: Colonoscopy, EGD Female Surgical History: Reports: Breast Implant Male Surgical History: Reports: None Endocrine Surgical History: Reports: None Neurological Surgical History: Reports: None Musculoskeletal Surgical History: Reports: Shoulder Surgery Other Musculoskeletal Surgeries/Procedures:: left shoulder repair x2 Oncologic Surgical History: Reports: None Dermatological Surgical History: Reports: None - SUBSTANCE USE Tobacco Use Status *Q: Never Tobacco User Recreational Drug Use History: No - HOME MEDS Home Medications: Home Meds Albuterol Sulfate [Albuterol Sulfate HFA] 8.5 gm IH Q6H PRN 10/14/13 [History] Acetaminophen [Tylenol] 650 mg PO Q6H PRN tablet 10/25/19 [Rx] Aspirin [Aspirin EC] 325 mg PO BID #84 tab 04/16/21 [Rx] Cyclobenzaprine [Flexeril] 10 mg PO BID PRN #20 tab 04/16/21 [Rx] Hydrocodone/Acetaminophen [HYDROcodone-Acetaminophen 5-325 MG] 1 - 2 each PO Q4H PRN #30 tablet 04/16/21 [Rx] Norethindrone-Ethin. Estradiol [Ortho-Novum 7-7-7-28 Tablet] 1 tab PO DAILY 04/16/21 [History] - CURRENT (IN HOUSE) MEDS Current Meds: Current Medications Epinephrine HCl (Epinephrine 1 Mg/Ml 30 Ml Mdv) 3 mg IRR ONETIME JOSE Stop: 04/17/21 14:00 Lactated Ringer's (Ringers, Lactated) 1,000 mls @ 125 mls/hr IV ASDIRECTED JOSE Stop: 04/17/21 23:00 Lidocaine/Sodium Bicarbonate (Lidocaine 1%/Sod Bicarbonate In Ns 8.4% 1 Ml Syringe) 0.25 ml IDERM ONETIME PRN PRN Reason: Prior to IV Start Stop: 04/17/21 18:00 Sodium Chloride (Sodium Chloride 0.9% 10 Ml Syringe) 10 ml FLUSH ASDIRECTED PRN PRN Reason: Keep Vein Open Stop: 04/17/21 18:00 Discontinued Medications Dexamethasone (Dexamethasone 4 Mg/Ml 5 Ml Mdv) Confirm Administered Dose 20 mg .ROUTE .STK-MED ONE Stop: 04/17/21 07:46 Fentanyl (Fentanyl 250 Mcg/5 Ml Sdv) Confirm Administered Dose 250 mcg .ROUTE .STK-MED ONE Stop: 04/17/21 07:38 Lidocaine HCl (Xylocaine-Mpf 1%) Confirm Administered Dose 4 mls @ as directed .ROUTE .STK-MED ONE Stop: 04/17/21 07:46 Midazolam HCl (Midazolam 1 Mg/Ml 2 Ml Sdv) Confirm Administered Dose 2 mg .ROUTE .STK-MED ONE Stop: 04/17/21 07:38 Ondansetron HCl (Ondansetron 4 Mg/2 Ml Sdv) Confirm Administered Dose 4 mg .ROUTE .STK-MED ONE Stop: 04/17/21 07:46 Propofol (Propofol 200 Mg/20 Ml Sdv) Confirm Administered Dose 200 mg .ROUTE .STK-MED ONE Stop: 04/17/21 07:38 Propofol (Propofol 200 Mg/20 Ml Sdv) Confirm Administered Dose 200 mg .ROUTE .STK-MED ONE Stop: 04/17/21 07:38 Propofol (Propofol 200 Mg/20 Ml Sdv) Confirm Administered Dose 200 mg .ROUTE .STK-MED ONE Stop: 04/17/21 07:38
[2021-04-17] MEDS ORDERED: Ketamine 500 mg/10 ML MDV ONE (11:43)
[2021-04-17] MEDS ORDERED: Bupivacaine 0.25% 10 ML SDV ONE (11:47)
[2021-04-17] MEDS ORDERED: HYDROmorphone 1 MG/ML Syringe ONE ×2 (12:07→12:57)
[2021-04-17] MEDS ORDERED: ceFAZolin 1 GM Vial ONE (12:16)
[2021-04-17] MEDS ORDERED: Propofol 200 MG/20 ML SDV ONE ×4 (12:18→13:27)
--- NOTE | 2021-04-17 13:54 | CR ---
Left knee: 2 fluoroscopic spot views were obtained of the left knee utilizing C-arm device. Study shows placement of an ACL graft. Fluoroscopy time is given a 6.4 seconds. Impression: 1. Procedural study as described above. Diagnostic code #2
[2021-04-17] MEDS ORDERED: Ropivacaine 0.5% 5 MG/ML 30 ML SDV ONE (13:55)
[2021-04-17] MEDS ORDERED: EPINEPHrine 1 MG/ML SDV ONE (13:55)
[2021-04-17] MEDS ORDERED: Acetaminophen/oxyCODONE 325-5 MG Tab PO ONE (14:00)
[2021-04-17] MEDS ORDERED: Ketorolac 30 MG/ML SDV ONE (14:03)
[2021-04-17] MEDS ORDERED: fentaNYL 100 MCG/2 ML SDV IVPUSH PRN (14:30)
[2021-04-17] MEDS ORDERED: Ondansetron 4 MG/2 ML SDV IVPUSH PRN (14:30)
[2021-04-17] MEDS ORDERED: HYDROmorphone 0.5 MG/0.5 ML Syringe IVPUSH PRN (14:30)
--- NOTE | 2021-04-17 14:30 | PCM.POSTAN ---
POST ANESTHESIA ASSESSMENT - MENTAL STATUS Mental Status: Alert, Oriented - VITAL SIGNS Vital Signs: Last Vital Signs Temp 36.4 C 04/17/21 13:48 Pulse 92 04/17/21 11:05 Resp 20 04/17/21 13:48 BP 114/64 04/17/21 13:48 Pulse Ox 98 04/17/21 13:48 - RESPIRATORY Respiratory Status: Respiratory Rate WNL, Airway Patent, O2 Saturation Stable - CARDIOVASCULAR CV Status: Pulse Rate WNL, Blood Pressure Stable - GASTROINTESTINAL GI Status: No Symptoms - PAIN Pain Score: 4 - POST OP HYDRATION Hydration Status: Adequate & Stable
--- NOTE | 2021-04-17 15:15 | PCM48HPAN ---
Post Anesthesia Note - EVALUATION WITHIN 48HRS OF ANESTHETIC Vital Signs in Normal Range: Yes Patient Participated in Evaluation: Yes Respiratory Function Stable: Yes Airway Patent: Yes Cardiovascular Function Stable: Yes Hydration Status Stable: Yes Pain Control Satisfactory: Yes Nausea and Vomiting Control Satisfactory: Yes Mental Status Recovered: Yes Vital Signs: Last Vital Signs Temp 36.4 C 04/17/21 13:48 Pulse 92 04/17/21 11:05 Resp 20 04/17/21 13:48 BP 114/64 04/17/21 13:48 Pulse Ox 98 04/17/21 13:48
--- NOTE | 2021-04-17 15:35 | PCM.PRNOTE ---
- Free Text/Narrative Note: Left femoral nerve block under ultrasound guidance for post-procedure pain control Time Out: 1407 Start: 1408 End: 1416 Chart reviewed. Consent signed. Questions answered. Appropriate monitors applied. Time out performed. Left femoral artery identified with ultrasound. The femoral nerve was lateral to the artery. The skin was prepped lateral to the ultrasound probe with chlorahexadine. 2 ml of 1% lidocaine was used for skin injection. The 21ga 4 insulated block needle was inserted under direct ultrasound guidance into the left groin. 20mL of 0.5% ropivacaine with 1:200,000 epinephrine was injected cirmcumferentially about the nerve with intermittent negative aspiration every 5mL. Patient tolerated the procedure well. No complications noted. See pictures on progress note and vital signs on nurses notes. Block completed postoperatively. Efrain Veronica CRNA
[2021-04-18 09:11] VITALS: BP 132/91; PULSE 105
--- NOTE | 2021-04-30 18:59 | PCM.OPNOTE ---
- General Post-Op/Procedure Note Date of Surgery/Procedure: 04/17/21 Operative Procedure(s): left knee arthroscopy with ACL allograft reconstruction Pre Op Diagnosis: left knee ACL deficiency Post-Op Diagnosis: Same Anesthesia Technique: General LMA, Regional Block Primary Surgeon: Mateus Robledo Anesthesia Provider: Efrain Veronica Software Client Architect: [employer] Client Architect: Herminia Zimmerman EBRayna in mLs: 5 Complications: None Condition: Good
--- NOTE | 2021-05-02 08:40 | OR ---
DATE OF OPERATION: 04/17/2021 SURGEON: Mateus Robledo MD OPERATION PERFORMED: Left knee arthroscopy with anterior cruciate ligament allograft reconstruction. 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 POSTOPERATIVE DIAGNOSIS: Left knee anterior cruciate ligament deficiency. ANESTHESIA: General LMA with regional femoral block. ANESTHESIA PROVIDER: ASSISTANTS: Yuni Mix PA-C, and Herminia Zimmerman LPN. ESTIMATED BLOOD LOSS: 5 mL. COMPLICATIONS: None. CONDITION: Stable. DESCRIPTION OF PROCEDURE: Patient was identified in the preoperative holding area where proper site was marked, identified by the surgeon. The patient was taken back to the OR, where after adequate anesthesia, patient's left lower extremity had a nonsterile tourniquet applied. It was then placed in a C-clamp mosley. Right lower extremity was placed in a well leg mosley. Foot of the bed was lowered. Left lower extremity was then sterilely prepped and draped in usual sterile fashion. OR time-out was performed. Patient received 2 g IV Ancef. Left lower extremity was exsanguinated. Tourniquet was insufflated to 250 mmHg. Standard anterolateral portal incision was made. Scope trocar was introduced. Patient had no signs of chondromalacia of the patellofemoral joint. Attention was turned to the medial compartment. Anteromedial portal was created next to the patellar tendon with the use of a spinal needle. Medial compartment showed no chondromalacia and no signs of meniscal tear. ACL was noted to be severely scarred into the notch, high into the notch and completely off the femoral side. She did have significant amount of scar tissue noted anteriorly in the notch as the patient did have significantly poor preoperative motion. Lateral compartment showed no chondromalacia changes and no meniscal tear. At this time, the graft was opened on the back table and was prepared by Yuni Mix PA-C, and Herminia Zimmerman LPN, to the length of 75 mm. While this was being done, the old fibers of the ACL were removed and a cutting guide was placed 55 degrees on it for the tibia and this was placed in the old footprint of the ACL and a 9 mm reamer was then utilized. At this time, bony fragments were removed and attention was turned to the flip cutter guide on the posterior portion of the femur for 105 degrees. The flip cutter was then placed for a size 9 and it was reamed to a depth of 25 mm. At this time, the graft was shuttled up through the tibia into the femur and a button was then flipped on the femur. C-arm fluoroscopy showed it to be in proper position and the graft was then shuttled up into the femoral tunnel. At this time, attention was applied to the FiberWire strands. The patient's knee was brought through a cycled range of motion. The patient had full range of motion with no signs of instability. A 4.0 cortical screw with washer was then applied to the tibia for a post and the suture limbs were tied with the post and this was then tightened. Direct imaging of the ACL graft showed it to be intact, in proper position, and negative anterior drawer under direct visualization. Adequate saline was irrigated through all incisions. 2-0 Vicryl was used subcutaneously and Monocryl was used for closure of the skin. Patient had a sterile soft dressing applied as well as a knee immobilizer and was sent to the PACU in stable condition. [facility] /[id number]
== END 2021-04-17 15:40 | disposition home or self-care (01) ==
LOC: JD.SDS 10:45
PROVIDERS: ATTEND Orthopaedic Surgery
DX: S83.512A Sprain of anterior cruciate ligament of left knee, initial encounter (principal); Z79.899 Other long term (current) drug therapy; Z98.890 Other specified postprocedural states
CPT/HCPCS: 29888; 76000; 81025; A9270; C1713; C1762; J0171; J0690; J1100; J1170; J1885; J2250; J2405; J2704; J2795; J3010; J3490; J7120; 01400; 64447; 76942

== ENCOUNTER 2023-11-24 01:23 | Inpatient (IN) | payer OTHER ==
[2023-11-24] MEDS ORDERED: Ondansetron 4 MG/2 ML SDV IVPUSH PRN (07:08)
[2023-11-24] MEDS ORDERED: Acetaminophen 325 MG Tab PO PRN (07:08)
[2023-11-24] MEDS ORDERED: Nalbuphine 10 MG/ML Syringe IVPUSH PRN (07:08)
[2023-11-24] MEDS ORDERED: Sodium Chloride 0.9% 10 ML Syringe FLUSH PRN (07:08)
[2023-11-24] MEDS ORDERED: Lidocaine 1% 50 ML MDV INJECT PRN (07:08)
[2023-11-24] MEDS ORDERED: Oxytocin/Lactated Ringers 30 UNIT/500 ML BAG IV SCH (07:15)
[2023-11-24 07:33] LABS: BASOPHILS ABSOLUTE AUTO 0.1 K/mm3 (0.0-0.2); BASOPHILS PERCENT AUTO 0.5 % (0.0-1.0); EOSINOPHILS ABSOLUTE AUTO 0.1 K/mm3 (0.0-0.4); EOSINOPHILS PERCENT AUTO 1.1 % (0.0-6.0); HEMATOCRIT 34.2 % (37.0-47.0); HEMOGLOBIN 11.8 gm/dl (12.0-16.0); IMMATURE GRAN ABSOLUTE AUTO 0.19 K/mm3 (0.00-0.05); IMMATURE GRAN PERCENT AUTO 1.7 % (0.0-0.4); LYMPHOCYTES ABSOLUTE AUTO 2.1 K/mm3 (1.0-4.8); MEAN CORPUSCULAR HEMOGLOBIN 30.2 pg (28.0-32.0); MEAN CORPUSCULAR HGB CONC 34.5 g/dl (32.0-36.0); MEAN CORPUSCULAR VOLUME 87.5 fl (83.0-99.0); MEAN PLATELET VOLUME 10.4 fl (9.4-12.3); MONOCYTES ABSOLUTE AUTO 1.2 K/mm3 (0.0-0.8); MONOCYTES PERCENT AUTO 10.3 % (0.0-8.0); NEUTROPHILS ABSOLUTE AUTO 7.6 K/mm3 (1.8-7.7); NEUTROPHILS PERCENT AUTO 67.4 % (41.0-71.0); PLATELET COUNT,PLT 205 K/mm3 (150-400); RED BLOOD CELL COUNT 3.91 M/mm3 (4.10-5.30)
[2023-11-24] MEDS: Lactated Ringers 1,000 ML IV SCH (07:39)
[2023-11-24] MEDS: Oxytocin/Lactated Ringers 30 UNIT/500 ML BAG IV SCH (07:42)
[2023-11-24] MEDS: Sodium Chloride 0.9% 10 ML Syringe FLUSH SCH (12:06)
[2023-11-24] MEDS ORDERED: ePHEDrine 50 MG/ML SDV IVPUSH PRN ×2 (12:11→12:13)
[2023-11-24] MEDS ORDERED: Bupivacaine/fentaNYL/NS 100 ML Bag EPIDUR PRN (12:11)
[2023-11-24] MEDS ORDERED: fentaNYL 100 MCG/2 ML SDV EPIDUR PRN (12:11)
[2023-11-24] MEDS ORDERED: diphenhydrAMINE 50 MG/ML SDV IVPUSH PRN ×2 (12:11→12:13)
[2023-11-24] MEDS: Bupivacaine/fentaNYL/NS 100 ML Bag EPIDUR PRN (12:19)
[2023-11-24] MEDS: fentaNYL 100 MCG/2 ML SDV EPIDUR PRN (12:19)
[2023-11-24] MEDS ORDERED: Phenylephrine 1% 10 MG/ML SDV IVPUSH PRN (13:01)
[2023-11-25] MEDS ORDERED: Bupivacaine 0.25% 10 ML SDV ONE
[2023-11-25] MEDS ORDERED: Lidocaine 1.5% with EPINEPHrine 1:200,000 5 ML Amp ONE
[2023-11-25] MEDS ORDERED: Lidocaine 2% with EPINEPHrine 1:200,000 20 ML SDV ONE
[2023-11-25] MEDS ORDERED: Benzocaine/Menthol 20%-0.5% Spray 78 GM Cannister TOP PRN (02:21)
[2023-11-25] MEDS ORDERED: Witch Hazel Medicated Pads 40/Jar TOP PRN (02:21)
[2023-11-25] MEDS: Ibuprofen 600 MG Tab PO SCH (03:52)
[2023-11-25] MEDS: Acetaminophen 325 MG Tab PO PRN (14:42)
[2023-11-25] MEDS: Docusate Sodium 100 MG Cap PO PRN (17:37)
[2023-11-26 09:46] VITALS: BP 98/62; PULSE 75
== END 2023-11-26 11:30 | disposition home or self-care (01) | DRG 807 ==
LOC: JD.OB 01:23 → OBSVTOIN 11-25 01:23 → JD.OB 11-25 01:24
PROVIDERS: ADMIT Obstetrics & Gynecology; ATTEND Obstetrics & Gynecology
PROC: 10E0XZZ Delivery of Products of Conception, External Approach (ICD-10-PCS; principal; 2023-11-25)
PROC: 0KQM0ZZ Repair Perineum Muscle, Open Approach (ICD-10-PCS; 2023-11-25)
PROC: 10907ZC Drainage of Amniotic Fluid, Therapeutic from Products of Conception, Via Natural or Artificial Opening (ICD-10-PCS; 2023-11-25)
PROC: 3E033VJ Introduction of Other Hormone into Peripheral Vein, Percutaneous Approach (ICD-10-PCS; 2023-11-25)
PROC: 3E0R3BZ Introduction of Anesthetic Agent into Spinal Canal, Percutaneous Approach (ICD-10-PCS; 2023-11-25)
PROC: 00HU33Z Insertion of Infusion Device into Spinal Canal, Percutaneous Approach (ICD-10-PCS; 2023-11-25)
DX: O69.81X0 Labor and delivery complicated by cord around neck, without compression, not applicable or unspecified (principal); Z37.0 Single live birth; O70.1 Second degree perineal laceration during delivery; Z98.890 Other specified postprocedural states; Z3A.39 39 weeks gestation of pregnancy
CPT/HCPCS: 36415; 51702; 59025; 59409; 85025; 86592; 86850; 86900; 86901; A9270-GY; J0665; J3010; J3490; J7120; J7999